=== PATIENT | male | born 1955 | race Caucasian/White ===

== ENCOUNTER → 2017-01-15 | Outpatient (CLI) | payer OTHER ==
[2017-01-15 09:48] LABS: CHLORIDE,CL 99 mmol/L (98-110); SODIUM,NA 138 mmol/L (136-146)
== END ==
LOC: MW.CHFP 09:02
PROVIDERS: ATTEND Nurse Practitioner Family
DX: R60.9 Edema, unspecified (principal)
CPT/HCPCS: 36415; 80048

== ENCOUNTER → 2017-02-04 | Outpatient (CLI) | payer OTHER ==
--- NOTE | 2017-02-05 16:37 | US ---
EXAM DATE: 02/04/17 PATIENT'S AGE: 61 Patient: CHRISTELLE DILL Facility: [place], [place] : 1955 Study: US Extremity Bilateral [id number]/04/2017 11:14:56 AM Ordering Physician: Shraddha Serrano Final Report: Exam: Duplex arterial examination of bilateral lower extremities including 2D and spectral analysis, and color Doppler imaging was performed. Indication: History of bilateral lower extremity peripheral arterial disease. Comparison: Ultrasound of bilateral lower extremity arteries dated 03/03/2014. Findings: RIGHT: -Atherosclerotic changes throughout the right lower extremity arteries RETORT FURNACE HELPER: 145 cm/sec; monophasic waveform PFA: 71 cm/sec; monophasic waveform SFA PROX: 111 cm/sec; monophasic waveform SFA MID: 154 cm/sec; monophasic waveform SFA DIST: 115 cm/sec; monophasic waveform POP: 74 cm/sec; monophasic waveform TP TRUNK: 71 cm/sec; monophasic waveform COLOR DEPOSITING MACHINE TENDER: 56 cm/sec; monophasic waveform SHANNON: 57 cm/sec; monophasic waveform LEFT: -Atherosclerotic changes throughout the left lower extremity arteries RETORT FURNACE HELPER: 98 cm/sec; multiphasic above the baseline waveform PFA: 73 cm/sec; monophasic waveform SFA PROX: 96 cm/sec; monophasic waveform SFA MID: 70 cm/sec; monophasic waveform SFA DIST: 43 cm/sec; monophasic waveform POP: 78 cm/sec; monophasic waveform TP TRUNK: 25 cm/sec; monophasic waveform COLOR DEPOSITING MACHINE TENDER: 29 cm/sec; monophasic waveform SHANNON: 26 cm/sec; monophasic waveform Impression: 1. Essentially monophasic waveforms throughout the bilateral lower extremity arteries suggestive of inflow disease. 2. No evidence of hemodynamically significant stenosis by velocity criteria, though waveforms in the left distal SFA and distally are severely diminished, new since 03/03/2014, suggestive of a hemodynamically significant stenosis in the mid to distal SFA. Dictated by Alejandro Nielsen MD @ Feb 05 2017 3:44PM (Electronic Signature) Report Signed by Proxy and Original Signed Document filed in the Medical Record. CHANCE
== END ==
LOC: MW.US 09:24
PROVIDERS: ATTEND Nurse Practitioner Family
DX: I73.9 Peripheral vascular disease, unspecified (principal)
CPT/HCPCS: 93925; 93925-26

== ENCOUNTER 2019-07-26 14:00 | Emergency (ER) | payer OTHER ==
[2019-07-26 14:29] VITALS: BP 156/81; PULSE 78
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
== END 2019-07-26 15:54 | disposition home or self-care (01) ==
LOC: MW.ED 14:00
DX: M25.561 Pain in right knee (principal); M54.2 Cervicalgia; M79.645 Pain in left finger(s); I10 Essential (primary) hypertension; E11.9 Type 2 diabetes mellitus without complications; F17.200 Nicotine dependence, unspecified, uncomplicated; V49.40XA Driver injured in collision with unspecified motor vehicles in traffic accident, initial encounter; Y92.410 Unspecified street and highway as the place of occurrence of the external cause
CPT/HCPCS: 71045; 71045-26; 72125; 72125-26; 73130-26-LT; 73130-LT; 73562-26-RT; 73562-RT; 99284-25

== ENCOUNTER 2021-02-16 15:59 | Emergency (ER) | payer OTHER ==
[2021-02-16] MEDS ORDERED: Sodium Chloride 0.9% 10 ML Syringe FLUSH PRN (16:19)
[2021-02-16] MEDS ORDERED: Sodium Chloride 0.9% 2.5 ML Syringe FLUSH PRN (16:19)
--- NOTE | 2021-02-16 16:21 | EDM.PDOC ---
ED HPI GENERAL MEDICAL PROBLEM - General Chief Complaint: General Stated Complaint: low blood pressure Time Seen by Provider: 02/16/21 16:07 Source of Information: Reports: Patient History Limitations: Reports: No Limitations - History of Present Illness INITIAL COMMENTS - FREE TEXT/NARRATIVE: HISTORY AND PHYSICAL: History of present illness: The patient is a 65-year-old male with a history of diabetes mellitus type 2, diabetic neuropathy, hypertension, hyper cholesterolemia, peripheral vascular disease, who presents to the emergency department after seeing his primary care Dr. Babcock and having a blood pressure reading of 82/40 and a recheck of 76/42. The patient took his morning dose of metoprolol, lisinopril and hydrochlorothiazide. In the clinic he had mild lightheadedness, but none in the emergency department. In the clinic he did have a blurred vision, headache, dizziness or syncope or near syncope and does not have any at this time. The patient has been seen Dr. Hagan for complaints of GI bloating, feeling gassy, mild nausea and abdominal discomfort for several months. The patient reports that this started mid October when he started taking Ozempic for glucose control. He took the medication until the end of November when he could no longer tolerate the GI effects. He has decreased appetite with a weight loss of 50 pounds since October. He does drink adequate amounts of water. He states generally he has been feeling weaker and has decreased steadiness since October. He states his normal blood pressure is 130/80. He is attempting to set up an appointment for a endoscopy with a general surgeon. His blood pressure at time of admission to the ED was 117/56. Patient denies any fever or chills. Denies any chest pain, back pain, shortness of breath or cough. Denies any abdominal pain, nausea, vomiting, diarrhea, constipation or dysuria. Has not noted any blood in urine or stool. Review of systems: As per history of present illness and below otherwise all systems reviewed and negative. Past medical history: As per history of present illness and as reviewed below otherwise noncontributory. Surgical history: As per history of present illness and as reviewed below otherwise noncontributory. Social history: See social history for further information Family history: As per history of present illness and as reviewed below otherwise noncontributory. Physical exam: General: Well developed and well nourished. Alert and orientated x 3. Nontoxic in appearance and in no acute distress. Vital signs are stable and have been reviewed by me. Nursing notes were reviewed. HEENT: Atraumatic, normocephalic, pupils equal and reactive bilaterally, negative for conjunctival pallor or scleral icterus, mucous membranes moist, t hroat clear, neck supple, nontender, trachea midline. No drooling or trismus noted. No meningeal signs. No hot potato voice noted. Lungs: Clear to auscultation bilaterally. No wheezes, rales, or rhonchi. Chest nontender. Normal work of breathing, no accessory muscles used. Heart: S1S2, regular rate and rhythm without overt murmur, gallops, or rubs. No JVD. Lymphedema left lower extremity. Abdomen: Soft, nondistended, mild tenderness bilateral upper quads. Normoactive bowel sounds. Negative for masses or costovertebral tenderness. Skin: Intact, warm, dry. No lesions or rashes noted. Hematologic: No petechiae or purpra. Mucosa appropriate color and normal nail bed color and refill. Extremities: Atraumatic, moves all extremities per self without difficulty or deficits, negative for cords or calf pain. Bilateral peripheral neuropathy. Neuro: Awake, alert, oriented. Cranial nerves II through XII unremarkable. Cerebellum unremarkable. Motor and sensory unremarkable throughout. Exam nonf ocal. Psychiatric: Mood and affect are appropriate. Normal thought process. Answering questions appropriately. Notes: *This patient was seen and evaluated during the 2019 SARS-CoV-2 novel coronaviru s pandemic period. Community viral transmission is ongoing at time of this encounter and the emergency department is operating under pandemic response procedures. After discussion and exam the patient is agreeable to labs, CXR, CT abdomen/pelvis, and UA. (17:11) Leukocytosis @ 16:50 13.98 Neutrophils 82.9; leukocytosis @ 11:57, WBC 15.06 Neutrophils 80.9. Patient had a negative FOBT in clinic today. GFR 55.[address] of abdomen/pelvis to continue. (17:38) CXR IMPRESSION: No acute pulmonary or cardiac abnormalities. Hyperinflation. CT abdomen/pelvis IMPRESSION per the Radiologist: 1. Constellation of hepatic hypodense mass inseparable from the gallbladder, necrotic mass/adenopathy along the diego hepatis, celiac axis and head of the pancreas. Although localized gallbladder perforation is possible with associated adenopathy, appearance is highly suggestive of malignancy. Differential diagnosis would include a gallbladder primary lesion with invasion of the liver or a pancreatic primary with regional adenopathy and hepatic metastases. Primary liver lesion possible but less likely. Liver biopsy suggested for next step in management. 2. Other incidental findings as detailed above. Consulted with Dr. Alcazar, Oncologist from [place] regarding treatment due to CT results. Dr. Alcazar advised the patient needed a CT guided biopsy and would need a referral to their clinic. A note needs to be faxed to the number, . The patient blood pressure is running 135/56 and heart rate of 90. He is have frequent loose stools that I will treat with Imodium. As the patient is stable and able to walk independently without becoming hypotensive I will discharge the patient home to follow up with Oncology in [place]. I will send the record for a referral and the oncology department will call the patient regarding an appointment. I spoke with the patient with is at the bedside regarding the results of the CT and possible cancer diagnosis. They verbalized their understanding and the need to follow up with the oncologist. The patient asked if I would follow up with Dr. Babcock tomorrow with the CT findings. The patient will follow Dr. Babcock instructions of holding the lisinopril and HCTZ for now. I have talked with the patient about today's findings, in addition to providing specific details for plan of care. Reassessment at the time of disposition demonstrates that the patient is in no acute distress. The patient is stable for discharge, counseling was provided and we discussed in great detail signs and symptoms that would prompt them to return to the Emergency Department. Medication, follow up and supportive care measures were reviewed and discussed. Voices understanding and is agreeable to plan of care. Denies any further questions or concerns at this time. Diagnostics: CBC, CMP, UA, CXR, CT abdomen/pelvis Therapeutics:IV fluids, Imodium Impression: Liver Mass Plan: 1. You were evaluated today on an emergent basis. Your low blood pressure and general GI upset. You were found to have a liver/gallbladder mass possible cancer. You will need to follow-up with the oncologist in [place]. I will send a referral over and they will call you. I will update your primary care provider. If you have any problems please return to the emergency department. 2. You can alternate Tylenol and ibuprofen as needed for pain and fever management. 3. We encourage you to follow up with your primary care provider and/or recommended specialist in the next few days for re-evaluation and further care/management. 4. If your symptoms should worsen, new symptoms develop or any of the signs and symptoms we discussed should arise please return to the emergency room or call 911 (if needed). Definitive disposition and diagnosis as appropriate pending reevaluation and review of above. - Related Data Allergies Allergy/AdvReac Type Severity Reaction Status Date / Time No Known Allergies Allergy Verified 02/16/21 16:27 Home Meds: Home Meds Aspirin 325 mg PO DAILY 02/16/21 [History] Fluticasone Propionate [Children's Flonase Allergy Rlf] 1 spray NASBOTH DAILY 02/16/21 [History] Furosemide 20 mg PO DAILY 02/16/21 [History] Insulin Degludec [Tresiba] 8 unit SQ DAILY 02/16/21 [History] Lansoprazole [Prevacid] 1 tab PO BID 02/16/21 [History] Metoprolol Succinate 1 tab PO DAILY 02/16/21 [History] Potassium Chloride 20 meq PO DAILY 02/16/21 [History] atorvaSTATin [Lipitor] 10 mg PO DAILY 02/16/21 [History] hydroCHLOROthiazide [Hydrochlorothiazide] 25 mg PO DAILY 02/16/21 [History] lisinopriL [Lisinopril] 40 mg PO DAILY 02/16/21 [History] Past Medical History Cardiovascular History: Reports: Bypass, Hypertension, Stents Endocrine/Metabolic History: Reports: Diabetes, Type II Social & Family History - Family History Family Medical History: No Pertinent Family History ED ROS GENERAL - Review of Systems Review Of Systems: Comprehensive ROS is negative, except as noted in HPI. ED EXAM, GENERAL - Physical Exam Exam: See Below (See dictation) Course - Vital Signs Last Recorded V/S: Last Vital Signs Temp 97.8 F 02/16/21 16:24 Pulse 84 02/16/21 18:26 Resp 16 02/16/21 18:26 BP 106/51 L 02/16/21 19:25 Pulse Ox 98 02/16/21 19:25 Orthostatic Blood Pressure [ 107/58 Standing] Orthostatic Blood Pressure [ 139/67 Sitting] Orthostatic Blood Pressure [ 135/54 Supine] - Orders/Labs/Meds Orders: Active Orders 24 hr Category Date Time Status Saline Lock Insert [OM.PC] Stat Oth 02/16/21 16:19 Ordered Labs: Laboratory Tests 02/16/21 02/16/21 Range/Units 16:50 16:50 WBC 13.98 H (4.0-11.0) K/uL RBC 4.51 (4.50-5.90) M/uL Hgb 13.2 (13.0-17.0) g/dL Hct 40.4 (38.0-50.0) % MCV 89.6 (80.0-98.0) fL MCH 29.3 (27.0-32.0) pg MCHC 32.7 (31.0-37.0) g/dL RDW Std Deviation 57.2 (28.0-62.0) fl RDW Coeff of Kwadwo 17 H (11.0-15.0) % Plt Count 275 (150-400) K/uL MPV 10.90 (7.40-12.00) fL Neut % (Auto) 82.9 H (48.0-80.0) % Lymph % (Auto) 6.5 L (16.0-40.0) % [place] % (Auto) 9.0 (0.0-15.0) % Eos % (Auto) 1.5 (0.0-7.0) % Baso % (Auto) 0.1 (0.0-1.5) % Neut # (Auto) 11.6 H (1.4-5.7) K/uL Lymph # (Auto) 0.9 (0.6-2.4) K/uL [place] # (Auto) 1.3 H (0.0-0.8) K/uL Eos # (Auto) 0.2 (0.0-0.7) K/uL Baso # (Auto) 0.0 (0.0-0.1) K/uL Nucleated RBC % 0.0 /100WBC Nucleated RBCs # 0 K/uL Sodium 137 (136-148) mmol/L Potassium 3.6 (3.5-5.1) mmol/L Chloride 99 (98-107) mmol/L Carbon Dioxide 28.4 (21.0-32.0) mmol/L BUN 21 H (7.0-18.0) mg/dL Creatinine 1.3 (0.8-1.3) mg/dL Est Cr Clr Drug Dosing 56.65 mL/min Estimated GFR (MDRD) 55.4 ml/min Glucose 136 H (74-106) mg/dL Calcium 8.8 (8.5-10.1) mg/dL Total Bilirubin 0.9 (0.2-1.0) mg/dL AST 42 H (15-37) IU/L ALT 24 (14-63) IU/L Alkaline Phosphatase 144 H (46-116) U/L Total Protein 7.3 (6.4-8.2) g/dL Albumin 2.4 L (3.4-5.0) g/dL Globulin 4.9 H (2.6-4.0) g/dL Albumin/Globulin Ratio 0.5 L (0.9-1.6) Meds: Medications Discontinued Medications Generic Name Dose Route Start Last Admin Trade Name Freq PRN Reason Stop Dose Admin Sodium Chloride 1,000 mls @ 150 mls/hr 02/16/21 16:57 02/16/21 17:27 Normal Saline IV 02/16/21 23:36 150 mls/hr STAT STA Administration Iopamidol 100 ml 02/16/21 17:21 02/16/21 17:22 Iopamidol 755 Mg/Ml 500 Ml Multipack Bottle IVPUSH 02/16/21 17:22 100 ml ONETIME ONE Administration Sodium Chloride 10 ml 02/16/21 16:19 02/16/21 16:40 Sodium Chloride 0.9% 10 Ml Syringe FLUSH 10 ml ASDIRECTED PRN Administration Keep Vein Open Sodium Chloride 2.5 ml 02/16/21 16:19 02/16/21 16:40 Sodium Chloride 0.9% 2.5 Ml Syringe FLUSH 2.5 ml ASDIRECTED PRN Administration Keep Vein Open Departure - Departure Time of Disposition: 19:23 Disposition: Home, Self-Care 01 Condition: Good Clinical Impression: Liver mass - Discharge Information *PRESCRIPTION DRUG MONITORING PROGRAM REVIEWED*: Not Applicable *COPY OF PRESCRIPTION DRUG MONITORING REPORT IN PATIENT LAILA: Not Applicable Instructions: Liver Cancer Referrals: Pancho Vela MD [Primary Care Provider] - Forms: ED Department Discharge Additional Instructions: The following information is given to patients seen in the emergency department who are being discharged to home. This information is to outline your options for follow-up care. We provide all patients seen in our emergency department with a follow-up referral. The need for follow-up, as well as the timing and circumstances, are variable depending upon the specifics of your emergency department visit. If you don't have a primary care physician on staff, we will provide you with a referral. We always advise you to contact your personal physician following an emergency department visit to inform them of the circumstance of the visit and for follow-up with them and/or the need for any referrals to a consulting specialist. The emergency department will also refer you to a specialist when appropriate. This referral assures that you have the opportunity for follow-up care with a specialist. All of these measure are taken in an effort to provide you with optimal care, which includes your follow-up. Under all circumstances we always encourage you to contact your private physician who remains a resource for coordinating your care. When calling for follow-up care, please make the office aware that this follow-up is from your recent emergency room visit. If for any reason you are refused follow-up, please contact the [facility] Emergency Department at and asked to speak to the emergency department charge nurse. [facility] [address] [place] [address] [id number] [address] [address] Plan: 1. You were evaluated today on an emergent basis. Your low blood pressure and general GI upset. You were found to have a liver/gallbladder mass possible cancer. You will need to follow-up with the oncologist in [place]. I will send a referral over and they will call you. I will update your primary care provider. If you have any problems please return to the emergency department. 2. You can alternate Tylenol and ibuprofen as needed for pain and fever management. 3. We encourage you to follow up with your primary care provider and/or recommended specialist in the next few days for re-evaluation and further care/management. 4. If your symptoms should worsen, new symptoms develop or any of the signs and symptoms we discussed should arise please return to the emergency room or call 911 (if needed). - My Orders Last 24 Hours: My Active Orders 02/16/21 16:19 Saline Lock Insert [OM.PC] Stat - Assessment/Plan Last 24 Hours: My Active Orders 02/16/21 16:19 Saline Lock Insert [OM.PC] Stat
[2021-02-16 16:27] VITALS: PULSE 84
[2021-02-16] MEDS ORDERED: Sodium Chloride 0.9% 1,000 ML IV STA (16:57)
--- NOTE | 2021-02-16 17:17 | CR ---
INDICATION: Low blood pressure TECHNIQUE: Chest 2 views. COMPARISON: 07/26/2019 FINDINGS: Cardiovascular and mediastinum: Heart size and vasculature are normal in caliber and appearance. Mediastinum is within normal limits. Lungs and pleural spaces: Hyperinflation. Lungs are clear. No sign of infiltrate or mass. No sign of pleural effusion. No pneumothorax. Bones and soft tissues: No significant findings. IMPRESSION: No acute pulmonary or cardiac abnormalities. Hyperinflation. Dictated by Mika Parikh MD @ 02/16/2021 5:15:[address] Mika Parikh @ Feb 16 2021 5:15PM
[2021-02-16] MEDS ORDERED: Iopamidol 755 MG/ML 500 ML Multipack Bottle IVPUSH ONE (17:21)
[2021-02-16 17:27] LABS: CARBON DIOXIDE,CO2 28.4 mmol/L (21.0-32.0); POTASSIUM,K 3.6 mmol/L (3.5-5.1)
--- NOTE | 2021-02-16 18:22 | CT ---
INDICATION: Leukocytosis TECHNIQUE: Axial images were obtained from the diaphragm to the pubic symphysis. Reformats were obtained in the coronal and sagittal plane. IV Contrast: 100 cc Isovue 370 Oral Contrast: None COMPARISON: None. FINDINGS: Lower chest: 3 millimeter pulmonary nodule right lower lobe (201, 12). Mosaic attenuation pattern of the lung bases. Liver: At the level of the gallbladder fossa involving segment 4 and 5 there is a hypodense mass measuring up to 8.7 x 7.0 centimeters surrounding and possibly involving the adjacent gallbladder (201, 71). Gallbladder and bile ducts: No intrahepatic biliary dilatation. The gallbladder is distended although its margins are indistinct, especially near the fundus. Spleen: Unremarkable. Normal in size without mass. Pancreas: Body and tail of the pancreas are unremarkable, however at the level of the head of the pancreas there is a hypodense mass measuring 3.4 centimeters. Additional extensive necrotic adenopathy along the celiac axis, largest measuring 2.5 centimeters, retrocrural measuring 15 millimeters and encasing the aorta near the renal level with a maximal diameter of 8.4 centimeters. Adrenal glands: Slight fusiform enlargement of the left adrenal gland. Kidneys: No hydronephrosis with nonobstructing nephrolithiasis. Left renal subcentimeter lesions, likely renal cysts. Vasculature: Atherosclerosis without abdominal aortic aneurysm encasement of the aorta at the level of the renal arteries secondary to the extensive adenopathy. GI tract: Stomach is decompressed. No dilated loops of large or small intestine. Appendix unremarkable. Pelvis: Fat containing left indirect inguinal hernia. Bones: Spondylolysis L5. IMPRESSION: 1. Constellation of hepatic hypodense mass inseparable from the gallbladder, necrotic mass/adenopathy along the diego hepatis, celiac axis and head of the pancreas. Although localized gallbladder perforation is possible with associated adenopathy, appearance is highly suggestive of malignancy. Differential diagnosis would include a gallbladder primary lesion with invasion of the liver or a pancreatic primary with regional adenopathy and hepatic metastases. Primary liver lesion possible but less likely. Liver biopsy suggested for next step in management. 2. Other incidental findings as detailed above. Results discussed with Dr. Hackett at 1811 on 02/16/20[address] note that all CT scans at this facility use dose modulation, iterative reconstruction, and/or weight-based dosing when appropriate to reduce radiation dose to as low as reasonably achievable. Dictated by Rodolfo Lazo MD @ 02/16/2021 6:20:[address] Rodolfo Lazo @ Feb 16 2021 6:20PM
[2021-02-16 19:28] VITALS: BP 106/51
--- NOTE | 2021-02-17 17:15 | PCM.EKG ---
#1 Interpretation EKG Date: 02/16/21 Time: 16:27 Rhythm: NSR Rate (Beats/Min): 76 [place]: Normal P-Wave: Present QRS: Normal ST-T: Normal QT: Normal Comparison: NA - No Prior EKG EKG Interpretation Comments: Sinus Rhythm
== END 2021-02-16 19:31 | disposition home or self-care (01) ==
LOC: MW.ED 15:59
DX: R16.0 Hepatomegaly, not elsewhere classified (principal); E11.40 Type 2 diabetes mellitus with diabetic neuropathy, unspecified; I10 Essential (primary) hypertension; Z79.82 Long term (current) use of aspirin; Z79.899 Other long term (current) drug therapy; Z95.5 Presence of coronary angioplasty implant and graft; Z95.1 Presence of aortocoronary bypass graft
CPT/HCPCS: 36415; 71046; 71046-26; 74177; 74177-26; 80053; 85025; 93005; 99284; 99285-25; J7030; Q9967

== ENCOUNTER 2021-03-22 06:43 | Day surgery (SDC) | payer OTHER, MEDICARE ==
--- NOTE | 2021-03-22 07:25 | PCM.PREANE ---
Preanesthetic Assessment - Anesthesia/Transfusion/Family Hx Anesthesia History: Prior Anesthesia Without Reaction Family History of Anesthesia Reaction: No Transfusion History: No Prior Transfusion(s) - Physical Assessment NPO Status Date: 03/22/21 NPO Status Time: 00:01 Vital Signs: Last Vital Signs Temp 98.1 F 03/22/21 06:50 Pulse 88 03/22/21 06:50 Resp 16 03/22/21 06:50 BP 164/72 H 03/22/21 06:50 Pulse Ox 96 03/22/21 06:50 Height: 5 ft 9 in Weight: 215 lb ASA Class: 3 Airway Class: Mallampati = 2 Dentition: Reports: Dentures ROM/Head Extension: Limited/Partial Lungs: Normal Respiratory Effort Cardiovascular: Regular Rhythm - Allergies Allergies/Adverse Reactions: Allergies Allergy/AdvReac Type Severity Reaction Status Date / Time No Known Allergies Allergy Verified 02/16/21 16:27 - Anesthesia Plan Pre-Op Medication Ordered: None - Acknowledgements Anesthesia Type Planned: General Anesthesia Pt an Appropriate Candidate for the Planned Anesthesia: Yes Alternatives and Risks of Anesthesia Discussed w Pt/Guardian: Yes Pt/Guardian Understands and Agrees with Anesthesia Plan: Yes Additional Comments: npo after mn liver CA IDDM glu 115 this am lisa obesity bmi 32 tob 1-2 ppd etoh 2-3 times a week htn no cv problems s/p L fem pop surgery, R side graft 2012 par no questions PreAnesthesia Questionnaire HEENT History: Reports: Other (See Below) Other HEENT History: wears glasses, top and bottom dentures Cardiovascular History: Reports: High Cholesterol, Hypertension, PVD, Stents Respiratory History: Reports: None Other Respiratory History: 45 year smoking hx, presently smokes alittle over 1 PPD Gastrointestinal History: Reports: GERD Genitourinary History: Reports: None Musculoskeletal History: Reports: None Neurological History: Reports: None Psychiatric History: Reports: None Endocrine/Metabolic History: Reports: Diabetes, Type II, Obesity/BMI 30+ Hematologic History: Reports: None Immunologic History: Reports: None Oncologic (Cancer) History: Reports: Liver Dermatologic History: Reports: None - Infectious Disease History Infectious Disease History: Reports: Chicken Pox, Measles, Mumps - Past Surgical History Head Surgeries/Procedures: Reports: None HEENT Surgical History: Reports: None Cardiovascular Surgical History: Reports: Vascular Surgery Other Cardiovascular Surgeries/Procedures: left femerol popiteal bypass, stent placement to right leg Respiratory Surgical History: Reports: None GI Surgical History: Reports: None Male Surgical History: Reports: None Endocrine Surgical History: Reports: None Neurological Surgical History: Reports: None Musculoskeletal Surgical History: Reports: None Oncologic Surgical History: Reports: None Dermatological Surgical History: Reports: None - SUBSTANCE USE Tobacco Use Status *Q: Current Every Day Tobacco User Tobacco Use Within Last Twelve Months: Cigarettes Days Per Week of Alcohol Use: 4 - HOME MEDS Home Medications: Home Meds Aspirin 325 mg PO DAILY 02/16/21 [History] Furosemide 20 mg PO DAILY 02/16/21 [History] Insulin Degludec [Tresiba] 8 unit SQ BEDTIME 02/16/21 [History] Lansoprazole [Prevacid] 1 tab PO DAILY PRN 02/16/21 [History] Metoprolol Succinate 50 mg PO DAILY 02/16/21 [History] Potassium Chloride 20 meq PO DAILY 02/16/21 [History] atorvaSTATin [Lipitor] 10 mg PO DAILY 02/16/21 [History] Fluticasone Propionate [Flonase Allergy Relief] 1 spray NASBOTH DAILY 03/20/21 [History] Insulin Aspart [NovoLOG] 1 injection SUBCUT ASDIRECTED 03/20/21 [History]
[2021-03-22] MEDS ORDERED: Bupivacaine 0.5% 10 ML SDV ONE (07:30)
[2021-03-22] MEDS ORDERED: Lactated Ringers 1,000 ML IV SCH (07:30)
[2021-03-22] MEDS ORDERED: Heparin Sodium 100 Units/ML 3 ML Syringe ONE ×2 (07:30→09:21)
[2021-03-22] MEDS ORDERED: Octyl 2-Cyanoacrylate 1 Tube ONE (07:31)
[2021-03-22] MEDS ORDERED: Lidocaine 1% 20 ML MDV ONE (07:31)
[2021-03-22] MEDS ORDERED: Iopamidol 408 MG/ML 20 ML SDV ONE (07:31)
[2021-03-22] MEDS ORDERED: Propofol 200 MG/20 ML SDV ONE (07:49)
[2021-03-22] MEDS ORDERED: fentaNYL 100 MCG/2 ML SDV ONE ×2 (07:49→08:24)
[2021-03-22] MEDS ORDERED: Ondansetron 4 MG/2 ML SDV ONE (07:49)
[2021-03-22] MEDS ORDERED: Phenylephrine 1% 10 MG/ML SDV ONE (08:16)
--- NOTE | 2021-03-22 09:26 | PCM.OPNOTE ---
- General Post-Op/Procedure Note Date of Surgery/Procedure: 03/22/21 Operative Procedure(s): Right internal jugular port a cath placement Findings: RIJ port Pre Op Diagnosis: Liver mass Post-Op Diagnosis: same Anesthesia Technique: General LMA Primary Surgeon: Ami Montes Fluid Replacement, Intraop: 1,000 EBL in mLs: 10 Condition: Good
--- NOTE | 2021-03-22 09:59 | PCM.POSTAN ---
POST ANESTHESIA ASSESSMENT - MENTAL STATUS Mental Status: Alert (no anesthetic problems), Oriented - VITAL SIGNS Vital Signs: Last Vital Signs Temp 97.9 F 03/22/21 09:40 Pulse 82 03/22/21 09:40 Resp 14 03/22/21 09:40 BP 138/64 03/22/21 09:40 Pulse Ox 91 L 03/22/21 09:40 - RESPIRATORY Respiratory Status: Respiratory Rate WNL, Airway Patent, O2 Saturation Stable - CARDIOVASCULAR CV Status: Pulse Rate WNL, Blood Pressure Stable - GASTROINTESTINAL GI Status: No Symptoms - POST OP HYDRATION Hydration Status: Adequate & Stable
[2021-03-22 10:20] VITALS: BP 135/63; PULSE 80
--- NOTE | 2021-03-22 10:43 | PCM48HPAN ---
Post Anesthesia Note - EVALUATION WITHIN 48HRS OF ANESTHETIC Vital Signs in Normal Range: Yes Patient Participated in Evaluation: Yes Respiratory Function Stable: Yes Airway Patent: Yes Cardiovascular Function Stable: Yes Hydration Status Stable: Yes Pain Control Satisfactory: Yes Nausea and Vomiting Control Satisfactory: Yes Mental Status Recovered: Yes Vital Signs: Last Vital Signs Temp 97.9 F 03/22/21 09:40 Pulse 80 03/22/21 10:10 Resp 16 03/22/21 10:10 BP 135/63 03/22/21 10:10 Pulse Ox 93 L 03/22/21 10:10
--- NOTE | 2021-03-23 10:33 | CR ---
INDICATION: Port-A-Cath placement. TECHNIQUE: Port-A-Cath placement performed by Dr. Montes. Two C-arm spot images were obtained. Fluoroscopy time was 60.8 sec. COMPARISON: None. FINDINGS: Right-sided Port-A-Cath in place with tip in the general region of the cavoatrial junction. IMPRESSION: Right-sided Port-A-Cath with tip at the cavoatrial junction. Dictated by Ajit Damian MD @ 03/23/2021 10:32:[address] Ajit Damian @ Mar 23 2021 10:32AM
--- NOTE | 2021-03-23 10:37 | CR ---
INDICATION: Port-A-Cath placement. TECHNIQUE: Upright portable AP image of the chest. COMPARISON: 02/16/2021. FINDINGS: Interval placement of right-sided Port-A-Cath with tip at the cavoatrial junction. Lungs low in volume with crowded markings in the bases. Increased left hilar mass. Numerous linear opacities in the bases raise concern of lymphangitic spread of carcinoma. No pleural effusion. Heart size within normal limits. IMPRESSION: 1. Interval Port-A-Cath placement with tip at the cavoatrial junction. 2. Increased left hilar mass. 3. Shallow inspiration with crowded markings in the bases and increased linear opacities raising concern of lymphangitic spread a carcinoma. Dictated by Ajit Damian MD @ 03/23/2021 10:36:[address] Ajit Damian @ Mar 23 2021 10:36AM
--- NOTE | 2021-03-23 11:40 | OR ---
SURGEON: AMI MONTES MD DATE OF PROCEDURE: 03/22/2021 PREOPERATIVE DIAGNOSIS: Neuroendocrine tumor of the liver. POSTOPERATIVE DIAGNOSIS: Neuroendocrine tumor of the liver. PROCEDURE PERFORMED: Right internal jugular Port-A-Cath placement. PRIMARY SURGEON: Ami Montes MD ANESTHESIA: General LMA. FLUIDS: See Anesthesia record. ESTIMATED BLOOD LOSS: 10 mL. FINDINGS: Right internal jugular Port-A-Cath placement. COMPLICATIONS: None. INDICATIONS: The patient is a 65-year-old male who presents to clinic with a recent diagnosis of a neuroendocrine tumor of the liver. He is in need of Port-A-Cath placement for chemotherapy. The patient and I discussed the procedure, expected perioperative course, and the risks including bleeding, infection, or damage to surrounding structures. The patient verbalized understanding and wishes to proceed. PROCEDURE IN DETAIL: The patient was brought into the OR and placed on the OR table in supine position. A time-out was completed verifying the patient's name, age, date of , allergies, and procedure to be performed. General LMA anesthesia was induced. A roll was placed under the patient's shoulders and both arms were tucked to the patient's side. An ultrasound probe was brought in to verify the vascular anatomy of the neck. I identified the right internal jugular vein and the right carotid artery. The neck and chest were then prepped and draped in usual standard fashion. The patient was placed into Trendelenburg position. Using a sterile ultrasound probe, I reidentified the vascular anatomy of the neck. Using a guide needle and ultrasound, I was able to place the needle into the internal jugular vein under direct visualization. A good return of venous blood was noted. I passed the guidewire down the needle, but was unable to get it to thread. The needle was removed and pressure was held at the neck. Using ultrasound guidance, I regained vascular access into the right internal jugular vein. This time, I was able to get the guidewire to pass without difficulty. C- arm was brought in and verified placement of the guidewire into the vena cava. The guidewire was secured to the drapes and I turned my attention to the right anterior chest wall. Prior to beginning the procedure, the neck and chest wall were anesthetized with 1% lidocaine plain and 0.5% Marcaine plain. An area of 2 fingerbreadths below the clavicle, an incision was made using a 15 blade. Cautery was used to dissect down to the level of the chest wall and create a subcutaneous pocket. An 11 blade was used to make a meng in the skin overlying the guidewire insertion site on the neck. The catheter tubing was tunneled from the anterior chest wall site up to the neck. A vascular sheath and dilator were then brought into the field. These were placed over the guidewire, and using the C-arm, I used fluoroscopic guidance to dilate up my vascular tract. The dilator and guidewire were removed. The catheter tubing was then placed down the vascular sheath and placed into the vena cava. The vascular sheath was removed. Using C-arm, I pulled the catheter tubing back, so that the catheter tubing was located in the vena cava right above the atrial junction. Photograph of this and the catheter tubing side of the neck were taken and saved. I accessed the catheter tubing. Good return of venous blood was noted. The catheter tubing was flushed with injectable saline. It was then trimmed at 26 cm and placed on the Port-A-Cath device. The port was placed in the subcutaneous chest wall pocket and secured on either side using interrupted 2-0 Prolenes. I accessed the catheter with a Alfonso needle. A good return of venous blood was noted. The catheter was then locked with 3 mL of heparinized saline. The subcutaneous fat layer was closed with interrupted 3-0 Vicryl sutures. The skin was closed with a running 4-0 Monocryl stitch. The insertion site on the neck was closed with interrupted 4-0 Monocryl suture. Dermabond and sterile dressings were applied. The patient tolerated the procedure well and was taken to PACU in stable condition. All counts were complete and correct at the end of the case. A postoperative chest x-ray showed good placement of the chest tube with no acute complications. DENISE / ROGER /[id number]
== END 2021-03-22 10:50 | disposition home or self-care (01) ==
LOC: MW.SDS 06:43
PROVIDERS: ATTEND Surgery
DX: D3A.8 Other benign neuroendocrine tumors (principal); R16.0 Hepatomegaly, not elsewhere classified; F17.210 Nicotine dependence, cigarettes, uncomplicated; G47.33 Obstructive sleep apnea (adult) (pediatric); E11.51 Type 2 diabetes mellitus with diabetic peripheral angiopathy without gangrene; I10 Essential (primary) hypertension; E78.00 Pure hypercholesterolemia, unspecified; E11.40 Type 2 diabetes mellitus with diabetic neuropathy, unspecified; J44.9 Chronic obstructive pulmonary disease, unspecified; E66.9 Obesity, unspecified; Z68.32 Body mass index [BMI] 32.0-32.9, adult; Z79.4 Long term (current) use of insulin; Z79.82 Long term (current) use of aspirin; Z79.899 Other long term (current) drug therapy
CPT/HCPCS: 36561; 71045; 76000; A9270; C1788; J0690; J1642; J2370; J2405; J2704; J3010; J3490; J7120; 00532; Q9966

== ENCOUNTER 2021-05-19 10:52 | Emergency (ER) | payer OTHER, MEDICARE ==
[2021-05-19] MEDS ORDERED: Sodium Chloride 0.9% 1,000 ML IV ONE (10:56)
[2021-05-19] MEDS ORDERED: Sodium Chloride 0.9% 2.5 ML Syringe FLUSH PRN (10:56)
[2021-05-19] MEDS ORDERED: Sodium Chloride 0.9% 10 ML Syringe FLUSH PRN (10:56)
[2021-05-19] MEDS ORDERED: Succinylcholine 200 MG/10 ML MDV IV STA (10:58)
[2021-05-19] MEDS ORDERED: Etomidate 2 MG/ML 20 ML SDV IVPUSH ONE (10:58)
[2021-05-19] MEDS ORDERED: fentaNYL 50 MCG/ML SDV IVPUSH PRN (11:11)
[2021-05-19] MEDS ORDERED: Furosemide 40 MG/4 ML VIAL IVPUSH ONE (11:12)
[2021-05-19] MEDS ORDERED: methylPREDNISolone Sodium Succinate 125 MG/2 ML SDV IVPUSH ONE (11:15)
[2021-05-19] MEDS ORDERED: propofoL 100 ML IV SCH (11:15)
[2021-05-19 11:39] LABS: BLOOD UREA NITROGEN,BUN 17 mg/dL (7.0-18.0); CARBON DIOXIDE,CO2 25.7 mmol/L (21.0-32.0); CHLORIDE,CL 100 mmol/L (98-107); GLUCOSE RANDOM 204 mg/dL (74-106); POTASSIUM,K 4.7 mmol/L (3.5-5.1); SODIUM,NA 135 mmol/L (136-148)
--- NOTE | 2021-05-19 11:43 | EDM.PDOC ---
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 Patient was getting outpatient chemotherapy, third round of etoposide. He tolerated the infusion well but after walking back out to his car became acutely dyspneic. called nursing who came out to evaluate patient and noted him to be diaphoretic, pale, hypotensive, tachycardic to 120s, hypoxic to 60s on room air. Patient was brought to emergency department for evaluation. Patient is tachypneic and only able to speak in short sentences, denies chest pain but endorses shortness of breath. Notes his lower extremity pitting edema is at baseline for him. States he is compliant with his medications. Has not had a reaction like this before. Has never required intubation. general Pain Score (Numeric/FACES): 3 - Related Data Allergies Allergy/AdvReac Type Severity Reaction Status Date / Time No Known Allergies Allergy Verified 05/19/21 11:04 Home Meds: Home Meds Aspirin 325 mg PO DAILY 02/16/21 [History] Furosemide 20 mg PO DAILY 02/16/21 [History] Insulin Degludec [Tresiba] 8 unit SQ BEDTIME 02/16/21 [History] Lansoprazole [Prevacid] 1 tab PO DAILY PRN 02/16/21 [History] Metoprolol Succinate 50 mg PO DAILY 02/16/21 [History] Potassium Chloride 20 meq PO DAILY 02/16/21 [History] atorvaSTATin [Lipitor] 10 mg PO DAILY 02/16/21 [History] Fluticasone Propionate [Flonase Allergy Relief] 1 spray NASBOTH DAILY 03/20/21 [History] Insulin Aspart [NovoLOG] 1 injection SUBCUT ASDIRECTED 03/20/21 [History] Hydrocodone/Acetaminophen [Vicodin Hp 10-300 mg Tablet] 1 each PO Q6H PRN #6 tablet 03/22/21 [Rx] Past Medical History HEENT History: Reports: Other (See Below) Other HEENT History: wears glasses, top and bottom dentures Cardiovascular History: Reports: High Cholesterol, Hypertension, PVD, Stents Respiratory History: Reports: None Other Respiratory History: 45 year smoking hx, presently smokes alittle over 1 PPD Gastrointestinal History: Reports: GERD Genitourinary History: Reports: None Musculoskeletal History: Reports: None Neurological History: Reports: None Psychiatric History: Reports: None Endocrine/Metabolic History: Reports: Diabetes, Type II, Obesity/BMI 30+ Hematologic History: Reports: None Immunologic History: Reports: None Oncologic (Cancer) History: Reports: Liver Dermatologic History: Reports: None - Infectious Disease History Infectious Disease History: Reports: Chicken Pox, Measles, Mumps - Past Surgical History Head Surgeries/Procedures: Reports: None HEENT Surgical History: Reports: None Cardiovascular Surgical History: Reports: Vascular Surgery Other Cardiovascular Surgeries/Procedures: left femerol popiteal bypass, stent placement to right leg Respiratory Surgical History: Reports: None GI Surgical History: Reports: None Male Surgical History: Reports: None Endocrine Surgical History: Reports: None Neurological Surgical History: Reports: None Musculoskeletal Surgical History: Reports: None Oncologic Surgical History: Reports: None Dermatological Surgical History: Reports: None Social & Family History - Family History Family Medical History: No Pertinent Family History - Recreational Drug Use Recreational Drug Use: No ED ROS GENERAL - Review of Systems Review Of Systems: Comprehensive ROS is negative, except as noted in HPI. ED EXAM, GENERAL - Physical Exam Exam: See Below Exam Limited By: Respiratory Distress General Appearance: Alert, Other (Respiratory distress, speaking short sentences, tachypneic, using accessory muscles, pale, diaphoretic) Eye Exam: Bilateral Eye: PERRL Ears: Hearing Grossly Normal Throat/Mouth: Normal Inspection, Normal Lips, Normal Oropharynx, Normal Voice, No Airway Compromise Head: Atraumatic, Normocephalic Neck: Normal Inspection, Supple Respiratory/Chest: Other (Bilateral inspiratory and expiratory rhonchi and wheezing, positive accessory muscle use, tachypnea, severe respiratory distress) Cardiovascular: Tachycardia, Other (Severe bilateral lower extremity pitting edema) GI/Abdominal: Soft, Non-Tender Back Exam: Normal Inspection Extremities: Normal Inspection Neurological: Alert, Oriented Psychiatric: Anxious Skin Exam: Warm, Intact ED RESPIRATORY PROCEDURES - Endotracheal Intubation Time of Intubation: 11:30 ET Intubation Indication: Respiratory Failure Preparation: Suction, Balloon Tested, BVM Set Up, Difficult Airway Equip Pre-Oxygenation: Assisted with BVM, 100% FiO2 Anesthesia Meds: Etomidate, Fentanyl, Propofol, Rocuronium, Succinylcholine Placement: Orotracheal Cords Visualized: Yes ETT Size In mm: 7.5 Number of Attempts: 2 Confirmed By: CO2 Indicator, Bilateral Breath Sounds, Chest Xray Tube Secured By: By RT Endotracheal Intubation Comment: Intubation was complicated with first-pass failure. Patient became hypoxic 40s and was starting to get bradycardic so intubation was arrested and patient was bagged with improvement of O2 sats to the 70s and improvement in heart rate back to the 110s. He never lost pulses. Second attempt intubation was successful using the bougie device. Post intubation O2 sats were in the high 90s. #1 Interpretation EKG Date: 05/19/21 Time: 12:54 Rhythm: NSR Rate (Beats/Min): 122 [place]: Normal P-Wave: Present QRS: Normal ST-T: Normal QT: Prolonged (502) IL/PQ Interval: 141 EKG Interpretation Comments: sinus tachycardia, no overt acute ischemic changes Course - Vital Signs Last Recorded V/S: Last Vital Signs Temp 96.9 F 05/19/21 10:59 Pulse 120 H 05/19/21 11:25 Resp 16 05/19/21 10:59 BP 171/88 H 05/19/21 11:25 Pulse Ox 84 L 05/19/21 11:25 - Orders/Labs/Meds Orders: Active Orders 24 hr Category Date Time Status Cardiac Monitoring [RC] . DIRECTED Care 05/19/21 10:57 Active EKG Documentation Completion [RC] STAT Care 05/19/21 10:56 Active Insert Urinary Catheter [OM.PC] Q24H Care 05/19/21 11:45 Ordered Pulse Oximetry [RC] ASDIRECTED Care 05/19/21 10:57 Active RASS Sedation Scale [RC] ASDIRECTED Care 05/19/21 11:12 Active RT Ventilator, Adult [RC] ASDIRECTED Care 05/19/21 10:58 Active Urinary Catheter Assessment [RC] ASDIRECTED Care 05/19/21 11:40 Active NG Tube Placement [CR] Stat Exams 05/19/21 11:39 Ordered CORONAVIRUS COVID-19 BERONICA [MOLEC] Stat Lab 05/19/21 12:44 Received CULTURE BLOOD [BC] Stat Lab 05/19/21 10:54 Received CULTURE BLOOD [BC] Stat Lab 05/19/21 11:04 Received REFLEX LACTIC ACID YES OR NO [CHEM] Routine Lab 05/19/21 11:46 Received Sodium Chloride 0.9% [Saline Flush] Med 05/19/21 10:56 Active 10 ml FLUSH ASDIRECTED PRN Sodium Chloride 0.9% [Saline Flush] Med 05/19/21 10:56 Active 2.5 ml FLUSH ASDIRECTED PRN fentaNYL Med 05/19/21 11:11 Active 50 mcg IVPUSH Q30M PRN fentaNYL/Normal Saline [fentaNYL 2500 MCG in NS 250 ML Med 05/19/21 13:00 Active (10 MCG/ML)] 250 ml IV ONETIME propofoL [Diprivan 100 ML] 100 ml Med 05/19/21 11:15 Active IV TITRATE Blood Culture x2 Reflex Set [OM.PC] Stat Ot 05/19/21 12:28 Ordered Desired Level of Sedation (RASS) [AST] Click to Edit Ot 05/19/21 11:12 Ordered Nasogastric Orogastric Tube Insertion [OM.PC] Stat Ot 05/19/21 12:05 Ordered Saline Lock Insert [OM.PC] Stat Ot 05/19/21 10:57 Ordered Medication Orders Fentanyl (Fentanyl 50 Mcg/Ml Sdv) 50 mcg IVPUSH Q30M PRN PRN Reason: Agitation Last Admin: 05/19/21 11:47 Dose: 50 mcg Documented by: GILA Propofol (Diprivan 100 Ml) 100 mls @ 2.776 mls/hr IV TITRATE PARVEEN; Protocol Last Titration: 05/19/21 12:49 Dose: 40 mcg/kg/min, 22.208 mls/hr Documented by: [id number] Titration: 05/19/21 12:35 Dose: 30 mcg/kg/min, 16.656 mls/hr Documented by: Titration: 05/19/21 12:31 Dose: 20 mcg/kg/min, 11.104 mls/hr Documented by: Titration: 05/19/21 11:47 Dose: 15 mcg/kg/min, 8.328 mls/hr Documented by: Titration: 05/19/21 11:45 Dose: 10 mcg/kg/min, 5.552 mls/hr Documented by: Admin: 05/19/21 11:37 Dose: 5 mcg/kg/min, 2.776 mls/hr Documented by: GILA Fentanyl Citrate (Fentanyl 2500 Mcg In Ns 250 Ml (10 Mcg/Ml)) 250 mls @ 9.2 mls/hr IV ONETIME ONE Stop: 05/20/21 16:10 Last Admin: 05/19/21 13:22 Dose: 9.2 mls/hr Documented by: AMINATA Sodium Chloride (Sodium Chloride 0.9% 10 Ml Syringe) 10 ml FLUSH ASDIRECTED PRN PRN Reason: Keep Vein Open Last Admin: 05/19/21 11:10 Dose: 10 ml Documented by: GILA Sodium Chloride (Sodium Chloride 0.9% 2.5 Ml Syringe) 2.5 ml FLUSH ASDIRECTED PRN PRN Reason: Keep Vein Open Last Admin: 05/19/21 11:10 Dose: 2.5 ml Documented by: GILA Labs: Laboratory Tests 05/19/21 05/19/21 05/19/21 Range/Units 10:59 10:59 10:59 WBC 21.77 H (4.0-11.0) K/uL RBC 3.90 L (4.50-5.90) M/uL Hgb 11.1 L (13.0-17.0) g/dL Hct 34.4 L (38.0-50.0) % MCV 88.2 (80.0-98.0) fL MCH 28.5 (27.0-32.0) pg MCHC 32.3 (31.0-37.0) g/dL RDW Std Deviation 59.5 (28.0-62.0) fl RDW Coeff of Kwadwo 19 H (11.0-15.0) % Plt Count 382 (150-400) K/uL MPV 11.60 (7.40-12.00) fL Neut % (Auto) 81.9 H (48.0-80.0) % Lymph % (Auto) 9.9 L (16.0-40.0) % [place] % (Auto) 7.9 (0.0-15.0) % Eos % (Auto) 0.1 (0.0-7.0) % Baso % (Auto) 0.2 (0.0-1.5) % Neut # (Auto) 17.8 H (1.4-5.7) K/uL Lymph # (Auto) 2.2 (0.6-2.4) K/uL [place] # (Auto) 1.7 H (0.0-0.8) K/uL Eos # (Auto) 0.0 (0.0-0.7) K/uL Baso # (Auto) 0.1 (0.0-0.1) K/uL Nucleated RBC % 0.0 /100WBC Nucleated RBCs # 0 K/uL INR APTT (18.6-31.3) SEC D-Dimer, Quantitative (0.0-0.50) mg/L FEU ABG pH (7.35-7.45) ABG pCO2 (35-45) mmHG ABG pO2 (80-105) mmHG ABG HCO3 (22-26) mEq/L ABG Total CO2 (23-27) mmol/L ABG Base Excess (-2.0-3.0) Sodium 135 L (136-148) mmol/L Potassium 4.7 (3.5-5.1) mmol/L Chloride 100 (98-107) mmol/L Carbon Dioxide 25.7 (21.0-32.0) mmol/L BUN 17 (7.0-18.0) mg/dL Creatinine 0.8 (0.8-1.3) mg/dL Est Cr Clr Drug Dosing 87.88 mL/min Estimated GFR (MDRD) > 60.0 ml/min Glucose 204 H (74-106) mg/dL Lactic Acid 5.3 H* (0.4-2.0) mmol/L Calcium 8.4 L (8.5-10.1) mg/dL Magnesium 1.5 L (1.8-2.4) mg/dL Total Bilirubin 0.2 (0.2-1.0) mg/dL AST 31 (15-37) IU/L ALT 27 (14-63) IU/L Alkaline Phosphatase 123 H (46-116) U/L Troponin I < 0.050 (0.000-0.056) ng/mL C-Reactive Protein 3.20 H (0.00-0.90) mg/dL B-Natriuretic Peptide (<100) PG/ML Total Protein 7.8 (6.4-8.2) g/dL Albumin 3.1 L (3.4-5.0) g/dL Globulin 4.7 H (2.6-4.0) g/dL Albumin/Globulin Ratio 0.7 L (0.9-1.6) TSH, Ultra Sensitive 3.41 (0.36-3.74) uIU/mL Urine Color Urine Appearance Urine pH (5.0-8.0) Ur Specific [place] (1.001-1.035) Urine Protein (NEGATIVE) mg/dL Urine Glucose (UA) (NEGATIVE) mg/dL Urine Ketones (NEGATIVE) mg/dL Urine Occult Blood (NEGATIVE) Urine Nitrite (NEGATIVE) Urine Bilirubin (NEGATIVE) Urine Urobilinogen (<2.0) EU/dL Ur Leukocyte Esterase (NEGATIVE) U Hyaline Cast (Auto) (0-2/LPF) Urine RBC (0-2/HPF) Urine WBC (0-5/HPF) Ur Epithelial Cells (NONE-FEW) Amorphous Sediment (NEGATIVE) Urine Bacteria (NEGATIVE) Urine Mucus (NONE-MOD) 05/19/21 05/19/21 05/19/21 Range/Units 10:59 10:59 11:10 WBC (4.0-11.0) K/uL RBC (4.50-5.90) M/uL Hgb (13.0-17.0) g/dL Hct (38.0-50.0) % MCV (80.0-98.0) fL MCH (27.0-32.0) pg MCHC (31.0-37.0) g/dL RDW Std Deviation (28.0-62.0) fl RDW Coeff of Kwadwo (11.0-15.0) % Plt Count (150-400) K/uL MPV (7.40-12.00) fL Neut % (Auto) (48.0-80.0) % Lymph % (Auto) (16.0-40.0) % [place] % (Auto) (0.0-15.0) % Eos % (Auto) (0.0-7.0) % Baso % (Auto) (0.0-1.5) % Neut # (Auto) (1.4-5.7) K/uL Lymph # (Auto) (0.6-2.4) K/uL [place] # (Auto) (0.0-0.8) K/uL Eos # (Auto) (0.0-0.7) K/uL Baso # (Auto) (0.0-0.1) K/uL Nucleated RBC % /100WBC Nucleated RBCs # K/uL INR 1.06 APTT 24.2 (18.6-31.3) SEC D-Dimer, Quantitative 1.87 H (0.0-0.50) mg/L FEU ABG pH 7.13 L* (7.35-7.45) ABG pCO2 70 H (35-45) mmHG ABG pO2 40 L (80-105) mmHG ABG HCO3 23 (22-26) mEq/L ABG Total CO2 22.7 L (23-27) mmol/L ABG Base Excess -7.1 L (-2.0-3.0) Sodium (136-148) mmol/L Potassium (3.5-5.1) mmol/L Chloride (98-107) mmol/L Carbon Dioxide (21.0-32.0) mmol/L BUN (7.0-18.0) mg/dL Creatinine (0.8-1.3) mg/dL Est Cr Clr Drug Dosing mL/min Estimated GFR (MDRD) ml/min Glucose (74-106) mg/dL Lactic Acid (0.4-2.0) mmol/L Calcium (8.5-10.1) mg/dL Magnesium (1.8-2.4) mg/dL Total Bilirubin (0.2-1.0) mg/dL AST (15-37) IU/L ALT (14-63) IU/L Alkaline Phosphatase (46-116) U/L Troponin I (0.000-0.056) ng/mL C-Reactive Protein (0.00-0.90) mg/dL B-Natriuretic Peptide 586 H (<100) PG/ML Total Protein (6.4-8.2) g/dL Albumin (3.4-5.0) g/dL Globulin (2.6-4.0) g/dL Albumin/Globulin Ratio (0.9-1.6) TSH, Ultra Sensitive (0.36-3.74) uIU/mL Urine Color Urine Appearance Urine pH (5.0-8.0) Ur Specific [place] (1.001-1.035) Urine Protein (NEGATIVE) mg/dL Urine Glucose (UA) (NEGATIVE) mg/dL Urine Ketones (NEGATIVE) mg/dL Urine Occult Blood (NEGATIVE) Urine Nitrite (NEGATIVE) Urine Bilirubin (NEGATIVE) Urine Urobilinogen (<2.0) EU/dL Ur Leukocyte Esterase (NEGATIVE) U Hyaline Cast (Auto) (0-2/LPF) Urine RBC (0-2/HPF) Urine WBC (0-5/HPF) Ur Epithelial Cells (NONE-FEW) Amorphous Sediment (NEGATIVE) Urine Bacteria (NEGATIVE) Urine Mucus (NONE-MOD) 05/19/21 05/19/21 Range/Units 12:01 13:16 WBC (4.0-11.0) K/uL RBC (4.50-5.90) M/uL Hgb (13.0-17.0) g/dL Hct (38.0-50.0) % MCV (80.0-98.0) fL MCH (27.0-32.0) pg MCHC (31.0-37.0) g/dL RDW Std Deviation (28.0-62.0) fl RDW Coeff of Kwadwo (11.0-15.0) % Plt Count (150-400) K/uL MPV (7.40-12.00) fL Neut % (Auto) (48.0-80.0) % Lymph % (Auto) (16.0-40.0) % [place] % (Auto) (0.0-15.0) % Eos % (Auto) (0.0-7.0) % Baso % (Auto) (0.0-1.5) % Neut # (Auto) (1.4-5.7) K/uL Lymph # (Auto) (0.6-2.4) K/uL [place] # (Auto) (0.0-0.8) K/uL Eos # (Auto) (0.0-0.7) K/uL Baso # (Auto) (0.0-0.1) K/uL Nucleated RBC % /100WBC Nucleated RBCs # K/uL INR APTT (18.6-31.3) SEC D-Dimer, Quantitative (0.0-0.50) mg/L FEU ABG pH 7.11 L* (7.35-7.45) ABG pCO2 82 H (35-45) mmHG ABG pO2 59 L (80-105) mmHG ABG HCO3 26 (22-26) mEq/L ABG Total CO2 25.6 (23-27) mmol/L ABG Base Excess -4.9 L (-2.0-3.0) Sodium (136-148) mmol/L Potassium (3.5-5.1) mmol/L Chloride (98-107) mmol/L Carbon Dioxide (21.0-32.0) mmol/L BUN (7.0-18.0) mg/dL Creatinine (0.8-1.3) mg/dL Est Cr Clr Drug Dosing mL/min Estimated GFR (MDRD) ml/min Glucose (74-106) mg/dL Lactic Acid (0.4-2.0) mmol/L Calcium (8.5-10.1) mg/dL Magnesium (1.8-2.4) mg/dL Total Bilirubin (0.2-1.0) mg/dL AST (15-37) IU/L ALT (14-63) IU/L Alkaline Phosphatase (46-116) U/L Troponin I (0.000-0.056) ng/mL C-Reactive Protein (0.00-0.90) mg/dL B-Natriuretic Peptide (<100) PG/ML Total Protein (6.4-8.2) g/dL Albumin (3.4-5.0) g/dL Globulin (2.6-4.0) g/dL Albumin/Globulin Ratio (0.9-1.6) TSH, Ultra Sensitive (0.36-3.74) uIU/mL Urine Color YELLOW Urine Appearance CLEAR Urine pH 6.0 (5.0-8.0) Ur Specific [place] 1.020 (1.001-1.035) Urine Protein TRACE H (NEGATIVE) mg/dL Urine Glucose (UA) 100 H (NEGATIVE) mg/dL Urine Ketones NEGATIVE (NEGATIVE) mg/dL Urine Occult Blood SMALL H (NEGATIVE) Urine Nitrite NEGATIVE (NEGATIVE) Urine Bilirubin NEGATIVE (NEGATIVE) Urine Urobilinogen 0.2 (<2.0) EU/dL Ur Leukocyte Esterase NEGATIVE (NEGATIVE) U Hyaline Cast (Auto) 0-2 (0-2/LPF) Urine RBC 0-3 (0-2/HPF) Urine WBC 0-2 (0-5/HPF) Ur Epithelial Cells FEW (NONE-FEW) Amorphous Sediment LIGHT (NEGATIVE) Urine Bacteria FEW (NEGATIVE) Urine Mucus LIGHT (NONE-MOD) Meds: Medications Generic Name Dose Route Start Last Admin Trade Name Jostin PRN Reason Stop Dose Admin Fentanyl 50 mcg 05/19/21 11:11 05/19/21 11:47 Fentanyl 50 Mcg/Ml Sdv IVPUSH 50 mcg Q30M PRN Administration Agitation Propofol 100 mls @ 2.776 mls/hr 05/19/21 11:15 05/19/21 12:49 Diprivan 100 Ml IV 40 mcg/kg/min TITRATE PARVEEN 22.208 mls/hr Titration Protocol 5 MCG/KG/MIN Fentanyl Citrate 250 mls @ 9.2 mls/hr 05/19/21 13:00 05/19/21 13:22 Fentanyl 2500 Mcg In Ns 250 Ml (10 Mcg/Ml) IV 05/20/21 16:10 9.2 mls/hr ONETIME ONE Administration Sodium Chloride 10 ml 05/19/21 10:56 05/19/21 11:10 Sodium Chloride 0.9% 10 Ml Syringe FLUSH 10 ml ASDIRECTED PRN Administration Keep Vein Open Sodium Chloride 2.5 ml 05/19/21 10:56 05/19/21 11:10 Sodium Chloride 0.9% 2.5 Ml Syringe FLUSH 2.5 ml ASDIRECTED PRN Administration Keep Vein Open Discontinued Medications Generic Name Dose Route Start Last Admin Trade Name Jostin PRN Reason Stop Dose Admin Enoxaparin Sodium 100 mg 05/19/21 12:25 05/19/21 12:30 Enoxaparin 100 Mg/1 Ml Syringe SUBCUT 05/19/21 12:26 100 mg ONETIME ONE Administration Etomidate 20 mg 05/19/21 10:58 05/19/21 11:11 Etomidate 2 Mg/Ml 20 Ml Sdv IVPUSH 05/19/21 10:59 20 mg ONETIME ONE Administration Furosemide 80 mg 05/19/21 11:12 05/19/21 11:19 Furosemide 40 Mg/4 Ml Vial IVPUSH 05/19/21 11:13 80 mg NOW ONE Administration Sodium Chloride 1,000 mls @ 999 mls/hr 05/19/21 10:56 05/19/21 11:09 Normal Saline IV 05/19/21 11:56 999 mls/hr .Bolus ONE Administration Magnesium Sulfate 2 gm/ Premix 50 mls @ 50 mls/hr 05/19/21 12:00 05/19/21 12:30 IV 05/19/21 12:59 50 mls/hr ONETIME ONE Administration Piperacillin Sod/Tazobactam 50 mls @ 100 mls/hr 05/19/21 12:29 05/19/21 12:36 Sod 3.375 gm/ Sodium Chloride IV 05/19/21 12:58 100 mls/hr ONETIME ONE Administration Methylprednisolone Sodium Succinate 125 mg 05/19/21 11:15 05/19/21 11:18 Methylprednisolone Sodium Succinate 125 Mg/2 Ml Sdv IVPUSH 05/19/21 11:16 125 mg ONETIME ONE Administration Rocuronium [place] 50 mg 05/19/21 11:47 05/19/21 11:47 Rocuronium 100 Mg/10 Ml Mdv IV 05/19/21 11:48 50 mg ONETIME ONE Administration Rocuronium [place] 50 mg 05/19/21 12:40 05/19/21 12:40 Rocuronium 100 Mg/10 Ml Mdv IV 05/19/21 12:41 50 mg ONETIME ONE Administration Succinylcholine Chloride 100 mg 05/19/21 10:58 05/19/21 11:11 Succinylcholine 200 Mg/10 Ml Mdv IV 05/19/21 10:59 100 mg STAT STA Administration - Re-Assessments/Exams Free Text/Narrative Re-Assessment/Exam: 05/19/21 12:09 Patient required intubation for severe respiratory distress. Patient's been given 80 mg of Lasix for pulmonary edema. Methylprednisolone 125 mg also given. Patient's vitals are stable post intubation. Labs remarkable for lactic acidosis, hypercapnic and hypoxic respiratory failure on ABG prior to intubation. White blood cell count is quite elevated in the 20s. Patient also hypomagnesemic, replacement ordered. And currently on hold with [facility] to arrange transfer of care. Will get CT PE to ensure no pulmonary embolism. 05/19/21 12:22 [facility] will call back, their transfer center states that they are currently overwhelmed. 05/19/21 12:[address] reveals extensive bilateral infiltrates consistent with severe atypical pneumonia or severe pulmonary edema. I do not see any large saddle embolism. 05/19/21 12:52 Dr. Shah agrees to accept patient under his service. Dr. Cruz crew mess attendant was also consulted and agrees to transfer. 05/19/21 13:27 Flight team will be here at 3 PM. Patient's at bedside has been made aware of plan and patient's status. She will be available at [phone] if needed. Oncology transfusion center also called in and was given update regarding patient's clinical status. Patient's oncologist Dr. Way was made aware that he has been transferred to [facility]. 05/19/21 13:31 Repeat ABG shows improved oxygenation, similar pH, worsening CO2 retention. Patient's respiratory rate changed from 12 to 16. 05/19/21 13:32 Departure - Departure Time of Disposition: 12:53 Disposition: DC/Tfer to [facility] 02 Condition: Serious Clinical Impression: Acute pulmonary edema Respiratory failure Qualifiers: Chronicity: acute Respiratory failure complication: hypoxia and hypercapnia Qualified Code(s): J96.01 - Acute respiratory failure with hypoxia - Discharge Information Referrals: PCP,None [Primary Care Provider] - Forms: ED Department Discharge Critical Care Note - Critical Care Note Total Time (mins): 60 Sepsis Event Note (ED) - Evaluation Sepsis Screening Result: No Definite Risk - Focused Exam Vital Signs: Vital Signs Temp Pulse Resp BP Pulse Ox 05/19/21 11:25 120 H 171/88 H 84 L 05/19/21 11:16 115 H 161/100 H 76 L 05/19/21 10:59 96.9 F 110 H 16 174/102 H 62 L - My Orders Last 24 Hours: My Active Orders 05/19/21 10:54 CULTURE BLOOD [BC] Stat 05/19/21 10:56 EKG Documentation Completion [RC] STAT Sodium Chloride 0.9% [Saline Flush] 10 ml FLUSH ASDIRECTED PRN Sodium Chloride 0.9% [Saline Flush] 2.5 ml FLUSH ASDIRECTED PRN 05/19/21 10:57 Cardiac Monitoring [RC] . DIRECTED Pulse Oximetry [RC] ASDIRECTED Saline Lock Insert [OM.PC] Stat 05/19/21 10:58 RT Ventilator, Adult [RC] ASDIRECTED 05/19/21 11:04 CULTURE BLOOD [BC] Stat 05/19/21 11:11 fentaNYL 50 mcg IVPUSH Q30M PRN 05/19/21 11:12 RASS Sedation Scale [RC] ASDIRECTED Desired Level of Sedation (RASS) [AST] Click to Edit 05/19/21 11:15 propofoL [Diprivan 100 ML] 100 ml IV TITRATE 05/19/21 11:39 NG Tube Placement [CR] Stat 05/19/21 11:40 Urinary Catheter Assessment [RC] ASDIRECTED 05/19/21 11:45 Insert Urinary Catheter [OM.PC] Q24H 05/19/21 11:46 REFLEX LACTIC ACID YES OR NO [CHEM] Routine 05/19/21 12:05 Nasogastric Orogastric Tube Insertion [OM.PC] Stat 05/19/21 12:28 Blood Culture x2 Reflex Set [OM.PC] Stat 05/19/21 12:44 CORONAVIRUS COVID-19 BERONICA [MOLEC] Stat 05/19/21 13:00 fentaNYL/Normal Saline [fentaNYL 2500 MCG in NS 250 ML (10 MCG/ML)] 250 ml IV ONETIME - Assessment/Plan Last 24 Hours: My Active Orders 05/19/21 10:54 CULTURE BLOOD [BC] Stat 05/19/21 10:56 EKG Documentation Completion [RC] STAT Sodium Chloride 0.9% [Saline Flush] 10 ml FLUSH ASDIRECTED PRN Sodium Chloride 0.9% [Saline Flush] 2.5 ml FLUSH ASDIRECTED PRN 05/19/21 10:57 Cardiac Monitoring [RC] . DIRECTED Pulse Oximetry [RC] ASDIRECTED Saline Lock Insert [OM.PC] Stat 05/19/21 10:58 RT Ventilator, Adult [RC] ASDIRECTED 05/19/21 11:04 CULTURE BLOOD [BC] Stat 05/19/21 11:11 fentaNYL 50 mcg IVPUSH Q30M PRN 05/19/21 11:12 RASS Sedation Scale [RC] ASDIRECTED Desired Level of Sedation (RASS) [AST] Click to Edit 05/19/21 11:15 propofoL [Diprivan 100 ML] 100 ml IV TITRATE 05/19/21 11:39 NG Tube Placement [CR] Stat 05/19/21 11:40 Urinary Catheter Assessment [RC] ASDIRECTED 05/19/21 11:45 Insert Urinary Catheter [OM.PC] Q24H 05/19/21 11:46 REFLEX LACTIC ACID YES OR NO [CHEM] Routine 05/19/21 12:05 Nasogastric Orogastric Tube Insertion [OM.PC] Stat 05/19/21 12:28 Blood Culture x2 Reflex Set [OM.PC] Stat 05/19/21 12:44 CORONAVIRUS COVID-19 BERONICA [MOLEC] Stat 05/19/21 13:00 fentaNYL/Normal Saline [fentaNYL 2500 MCG in NS 250 ML (10 MCG/ML)] 250 ml IV ONETIME
[2021-05-19] MEDS ORDERED: Rocuronium 100 MG/10 ML MDV IV ONE ×2 (11:47→12:40)
--- NOTE | 2021-05-19 11:55 | CR ---
INDICATION: Respiratory distress. COMPARISON: 22 Mar 2021. IMPRESSION: Prominent hazy and patchy airspace opacities mid to lower lungs bilaterally likely prominent pulmonary edema. Pulmonary vascular congestion is increased from before. Airspace opacities are a little more dense on the right. [id number] catheter unchanged. Dictated by Blanco Castaneda MD @ 05/19/2021 11:55:[address] Blanco Castaneda @ May 19 2021 11:55AM
[2021-05-19] MEDS ORDERED: Magnesium Sulfate/Water 2 GM in Premix Bag 1 BAG IV ONE (12:00)
[2021-05-19] MEDS ORDERED: Enoxaparin 100 MG/1 ML Syringe SUBCUT ONE (12:25)
[2021-05-19] MEDS ORDERED: Piperacillin/Tazobactam 3.375 GM in Sodium Chloride 0.9% 50 ML IV ONE (12:29)
[2021-05-19] MEDS ORDERED: NORMAL SALINE IV PRN (12:42)
[2021-05-19] MEDS ORDERED: FENTANYL IV PRN (12:42)
--- NOTE | 2021-05-19 12:42 | CR ---
Indication: Post intubation Technique: Chest 1 view Comparison: May 19, 2021 at 1107 hours Findings/Impression: Cardiovascular and mediastinum: Endotracheal tube is 3 cm above the rica. Unchanged port catheter. Heart size remains normal. Lungs and pleural space: Interval worsening of diffuse bilateral severe pulmonary infiltrates in a pattern suggesting ARDS. No pneumothorax. Bones and soft tissues: No acute findings. Dictated by Dean Powers MD @ 05/19/2021 12:40:[address] Dean Powers @ May 19 2021 12:40PM
[2021-05-19] MEDS ORDERED: fentaNYL/Normal Saline 250 ML IV ONE (13:00)
--- NOTE | 2021-05-19 13:28 | CT ---
Indication: Flash edema while receiving chemotherapy, Pain Technique: Volumetric multidetector CT images of the chest were obtained after the administration of IV contrast. 75 cc Isovue 370 low osmolar intravenous contrast Comparison: None available. Findings: Satisfactory position of endotracheal and enteric tubes. There is edema and multiple pathologic lymph nodes seen within the supraclavicular fossa. There is a right-sided Port-A-Cath in satisfactory position. The thoracic aorta is nonaneurysmal. There is no central filling defect to suggest pulmonary embolism. There are extensive pathologic mediastinal and hilar lymph nodes commensurate with likely reactive and metastatic changes. The trachea and bronchi are well aerated without significant bronchiectasis. There is extensive interstitial ground-glass and airspace opacity with marked interlobular and intralobular septal thickening commensurate with extensive pulmonary edema and/or multifocal infiltrates with small basilar effusions. There is no pneumothorax. There is no evidence of pulmonary mass or suspicious pulmonary nodule. There is demonstration of likely moderate portal edema within the partially visualized liver. There is a nasogastric tube coiled within the gastric lumen. The thoracic vertebral body heights are grossly maintained with mild to moderate multilevel degenerative disc disease. Impression: Extensive interstitial, ground-glass, and airspace opacity with marked interlobular and intralobular septal thickening consistent with severe pulmonary edema and/or multifocal infiltrates with extensive mediastinal and hilar adenopathy. There are trace bibasilar effusions. No evidence of pulmonary embolus. Satisfactory position of support lines and tubes. Please note that all CT scans at this facility use dose modulation, iterative reconstruction, and/or weight-based dosing when appropriate to reduce radiation dose to as low as reasonably achievable. Dictated by Palmer Manzanares MD @ 05/19/2021 1:27:[address] Palmer Manzanares @ May 19 2021 1:27PM
[2021-05-19 14:15] VITALS: BP 73/40; PULSE 86
[2021-05-19] MEDS ORDERED: Iopamidol 755 MG/ML 500 ML Multipack Bottle IVPUSH STA (14:53)
== END 2021-05-19 14:45 ==
LOC: MW.ED 10:52
DX: J96.02 Acute respiratory failure with hypercapnia (principal); J96.01 Acute respiratory failure with hypoxia; J81.0 Acute pulmonary edema; I10 Essential (primary) hypertension; E78.00 Pure hypercholesterolemia, unspecified; K21.9 Gastro-esophageal reflux disease without esophagitis; E11.9 Type 2 diabetes mellitus without complications; R00.0 Tachycardia, unspecified; F17.210 Nicotine dependence, cigarettes, uncomplicated; E66.9 Obesity, unspecified; Z68.30 Body mass index [BMI] 30.0-30.9, adult; Z79.82 Long term (current) use of aspirin; Z79.4 Long term (current) use of insulin; Z79.899 Other long term (current) drug therapy
CPT/HCPCS: 31500; 36415; 36600; 51702; 71045; 71275; 80053; 81001; 82803; 83605; 83735; 83880; 84443; 84484; 85025; 85379; 85610; 85730; 86140; 87040; 87635; 93005; 96365; 96366; 96368; 96372; 96375; 96376; 99285; J0330; J1650; J1940; J2543; J2704; J2930; J3010; J3475; J3490; J7030; Q9967; U0002

== ENCOUNTER 2021-06-15 12:15 | Inpatient (IN) | payer OTHER, MEDICARE ==
[2021-06-15] MEDS ORDERED: Nitroglycerin 0.4 MG Tab.SL ONE (12:19)
[2021-06-15] MEDS ORDERED: Nitroglycerin 0.4 MG Tab.SL SL ONE ×2 (12:20→12:21)
[2021-06-15] MEDS ORDERED: Etomidate 2 MG/ML 20 ML SDV IVPUSH ONE (12:22)
[2021-06-15] MEDS ORDERED: Succinylcholine 200 MG/10 ML MDV IV STA (12:22)
[2021-06-15] MEDS ORDERED: Sodium Chloride 0.9% 2.5 ML Syringe FLUSH PRN (12:24)
[2021-06-15] MEDS ORDERED: Sodium Chloride 0.9% 1,000 ML IV ONE (12:24)
[2021-06-15] MEDS ORDERED: Sodium Chloride 0.9% 10 ML Syringe FLUSH PRN (12:24)
[2021-06-15] MEDS ORDERED: Piperacillin/Tazobactam 3.375 GM in Sodium Chloride 0.9% 50 ML IV ONE (12:28)
[2021-06-15] MEDS ORDERED: Furosemide 40 MG/4 ML VIAL IVPUSH ONE ×2 (12:28→18:59)
[2021-06-15] MEDS ORDERED: Furosemide 40 MG/4 ML VIAL ONE (12:29)
[2021-06-15] MEDS ORDERED: propofoL 100 ML IV SCH (12:30)
[2021-06-15] MEDS ORDERED: Nitroglycerin/D5W 25 MG/250 ML BOTTLE ONE (12:30)
--- NOTE | 2021-06-15 12:46 | EDM.PDOC ---
ED HPI GENERAL MEDICAL PROBLEM - General Chief Complaint: Respiratory Problem Stated Complaint: DIFFICULTY BREATHING Time Seen by Provider: 06/15/21 13:00 Source of Information: Reports: Patient - History of Present Illness INITIAL COMMENTS - FREE TEXT/NARRATIVE: 66-year-old male history of metastatic cancer presents shortness of breath after chemotherapy. Patient was in the hospital receiving chemotherapy and developed significant shortness of breath and staff rushed to the patient side and brought him to the emergency department. Patient had a similar episode recently in which he was deemed to be in flash pulmonary edema and intubated. Patient himself complains of shortness of breath states he was doing fine prior to this chemotherapy. There is no chest pain. No recent fevers chills or infectious complaints. Additional information not available secondary to patient's extremis - Related Data Allergies Allergy/AdvReac Type Severity Reaction Status Date / Time No Known Allergies Allergy Verified 06/15/21 12:18 Home Meds: Home Meds Aspirin 325 mg PO DAILY 02/16/21 [History] Furosemide 60 mg PO DAILY 02/16/21 [History] Insulin Degludec [Tresiba] 10 unit SQ BEDTIME 02/16/21 [History] Lansoprazole [Prevacid] 30 mg PO DAILY PRN 02/16/21 [History] Metoprolol Succinate 50 mg PO DAILY 02/16/21 [History] Potassium Chloride 20 meq PO DAILY 02/16/21 [History] atorvaSTATin [Lipitor] 10 mg PO DAILY 02/16/21 [History] Fluticasone Propionate [Flonase Allergy Relief] 1 spray NASBOTH DAILY PRN 03/20/21 [History] Insulin Aspart [NovoLOG] 1 injection SUBCUT ASDIRECTED 03/20/21 [History] Hydrocodone/Acetaminophen [Vicodin Hp 10-300 mg Tablet] 1 each PO Q6H PRN #6 tablet 03/22/21 [Rx] traZODone 100 mg PO BEDTIME 06/15/21 [History] Past Medical History HEENT History: Reports: Other (See Below) Other HEENT History: wears glasses, top and bottom dentures Cardiovascular History: Reports: High Cholesterol, Hypertension, PVD, Stents Respiratory History: Reports: None Other Respiratory History: 45 year smoking hx, presently smokes alittle over 1 PPD Gastrointestinal History: Reports: GERD Genitourinary History: Reports: None Musculoskeletal History: Reports: None Neurological History: Reports: None Psychiatric History: Reports: None Endocrine/Metabolic History: Reports: Diabetes, Type II, Obesity/BMI 30+ Hematologic History: Reports: None Immunologic History: Reports: None Oncologic (Cancer) History: Reports: Liver Dermatologic History: Reports: None - Infectious Disease History Infectious Disease History: Reports: Chicken Pox, Measles, Mumps - Past Surgical History Head Surgeries/Procedures: Reports: None HEENT Surgical History: Reports: None Cardiovascular Surgical History: Reports: Vascular Surgery Other Cardiovascular Surgeries/Procedures: left femerol popiteal bypass, stent placement to right leg Respiratory Surgical History: Reports: None GI Surgical History: Reports: None Male Surgical History: Reports: None Endocrine Surgical History: Reports: None Neurological Surgical History: Reports: None Musculoskeletal Surgical History: Reports: None Oncologic Surgical History: Reports: None Dermatological Surgical History: Reports: None Social & Family History - Family History Family Medical History: No Pertinent Family History ED ROS GENERAL - Review of Systems Review Of Systems: Unable To Obtain Reason Not Obtained: clinical condition ED EXAM, GENERAL - Physical Exam Exam: See Below Free Text/Narrative:: CONSTITUTIONAL: Ill appearing. Patient toxic SKIN: mottleed, cool extremities HENT: Normocephalic, atraumatic, PULMONARY: Tachypnea, retractions, bilateral rales CARDIOVASCULAR: regular rate, No murmur, rubs, or gallops GASTROINTESTINAL: soft, nondistended, nontender NEUROLOGIC: normal speech, II-XII intact. light touch/5/5 power equal and symmetric in upper and lower extremities without deficit MUSCULOSKELETAL: no gross deformities, atraumatic PSYCHIATRIC: normal mood and affect #1 Interpretation Time: 12:46 EKG Interpretation Comments: 124, sinus tachycardia, nonspecific ST/T findings Course - Vital Signs Text/Narrative:: Differential diagnosis: Pulmonary edema, pneumonia, Covid, PE, reactive airway disease, ACS, other Patient presents to the emergency department in extremis. Patient with significant shortness of breath and hypoxia. Fortunately the patient had significant blood pressure and in preparation for noninvasive positive pressure support 2 nitroglycerin were given under the tongue. Patient has similar presentation with pulmonary edema recently. Patient did respond to CPAP. Another sublingual nitroglycerin was placed and nitro drip started in addition to Lasix. Patient was covered for antibiotics to cover for the event of infection. Covid negative. CT negative for PE. Admission for continued pressure support, diuresis and continue treatment and management. Patient without any chest pain. EKG nonspecific with negative cardiac enzymes Critical care: I spent 75 minutes of critical care time with this patient not including reportable procedures. There was an acute impairment of an organ system with a high probability of imminent or life threatening deterioration in the patient`s condition. Interventions and changes required in the course of therapy are located in the chart. Time involved was spent in direct patient care, reviewing ancillary data, old records, consulting with decision makers, EMS, other do ctors, giving orders and documenting. Last Recorded V/S: Last Vital Signs Temp 37.2 C 06/15/21 12:18 Pulse 87 06/15/21 16:40 Resp 24 H 06/15/21 16:40 BP 139/69 06/15/21 16:40 Pulse Ox 98 06/15/21 16:40 - Orders/Labs/Meds Orders: Active Orders 24 hr Category Date Time Status Cardiac Monitoring [RC] . DIRECTED Care 06/15/21 12:24 Active RASS Sedation Scale [RC] ASDIRECTED Care 06/15/21 12:30 Active CULTURE BLOOD [BC] Stat Lab 06/15/21 12:32 Received CULTURE BLOOD [BC] Stat Lab 06/15/21 12:35 Received REFLEX LACTIC ACID YES OR NO [CHEM] Routine Lab 06/15/21 13:26 Received UA RFX SRIKANTH AND CULT IF INDIC [URIN] Stat Lab 06/15/21 12:24 Ordered Sodium Chloride 0.9% [Saline Flush] Med 06/15/21 12:24 Active 10 ml FLUSH ASDIRECTED PRN Sodium Chloride 0.9% [Saline Flush] Med 06/15/21 12:24 Active 2.5 ml FLUSH ASDIRECTED PRN Blood Culture x2 Reflex Set [OM.PC] Stat Oth 06/15/21 12:27 Ordered Desired Level of Sedation (RASS) [AST] Click to Edit Oth 06/15/21 12:30 Ordered Saline Lock Insert [OM.PC] Stat Oth 06/15/21 12:24 Ordered Medication Orders Acetaminophen (Acetaminophen 325 Mg Tab) 650 mg PO Q4H PRN PRN Reason: Pain (Mild 1-3)/fever Albuterol/Ipratropium (Albuterol/Ipratropium 3.0-0.5 Mg/3 Ml Neb Soln) 3 ml NEB Q4HRRT PRN PRN Reason: Shortness Of Breath/wheezing Furosemide (Furosemide 40 Mg/4 Ml Vial) 40 mg IVPUSH BID [facility] Heparin Sodium (Porcine) (Heparin Sodium 5,000 Units/Ml Vial) 5,000 units SUBCUT Q8H [facility] Nitroglycerin/Dextrose (Nitroglycerin 25 Mg/D5w 250 Ml) 25 mg in 250 mls @ 18 mls/hr IV TITRATE [facility]; Protocol Last Admin: 06/15/21 15:45 Dose: 30 mcg/min, 18 mls/hr Documented by: SUMAN Pantoprazole Sodium 40 mg/ (Sodium Chloride) 10 mls @ 300 mls/hr IV DAILY [facility] Piperacillin Sod/Tazobactam (Sod 3.375 gm/ Sodium Chloride) 50 mls @ 100 mls/hr IV Q6H [facility] Vancomycin HCl (Vancomycin 1.5 Gm/300 Ml) 300 mls @ 200 mls/hr IV Q12H [facility] Ondansetron HCl (Ondansetron 4 Mg/2 Ml Sdv) 4 mg IVPUSH Q4H PRN PRN Reason: Nausea/Vomiting Sodium Chloride (Sodium Chloride 0.9% 10 Ml Syringe) 10 ml FLUSH ASDIRECTED PRN PRN Reason: Keep Vein Open Last Admin: 06/15/21 14:05 Dose: 10 ml Documented by: SUMAN Sodium Chloride (Sodium Chloride 0.9% 2.5 Ml Syringe) 2.5 ml FLUSH ASDIRECTED PRN PRN Reason: Keep Vein Open Last Admin: 06/15/21 14:05 Dose: 2.5 ml Documented by: SUMAN Vancomycin HCl (Pharmacy To Dose - Vancomycin) 1 dose .XX ASDIRECTED [facility] Labs: Laboratory Tests 06/15/21 06/15/21 06/15/21 Range/Units 12:28 12:28 12:28 WBC (4.0-11.0) K/uL RBC (4.50-5.90) M/uL Hgb (13.0-17.0) g/dL Hct (38.0-50.0) % MCV (80.0-98.0) fL MCH (27.0-32.0) pg MCHC (31.0-37.0) g/dL RDW Std Deviation (28.0-62.0) fl RDW Coeff of Kwadwo (11.0-15.0) % Plt Count (150-400) K/uL MPV (7.40-12.00) fL Neut % (Auto) (48.0-80.0) % Lymph % (Auto) (16.0-40.0) % [place] % (Auto) (0.0-15.0) % Eos % (Auto) (0.0-7.0) % Baso % (Auto) (0.0-1.5) % Neut # (Auto) (1.4-5.7) K/uL Lymph # (Auto) (0.6-2.4) K/uL [place] # (Auto) (0.0-0.8) K/uL Eos # (Auto) (0.0-0.7) K/uL Baso # (Auto) (0.0-0.1) K/uL Nucleated RBC % /100WBC Nucleated RBCs # K/uL INR 1.10 Sodium 135 L (136-148) mmol/L Potassium 3.8 (3.5-5.1) mmol/L Chloride 98 (98-107) mmol/L Carbon Dioxide 27.6 (21.0-32.0) mmol/L BUN 15 (7.0-18.0) mg/dL Creatinine 0.9 (0.8-1.3) mg/dL Est Cr Clr Drug Dosing 88.62 mL/min Estimated GFR (MDRD) > 60.0 ml/min Glucose 249 H (74-106) mg/dL Lactic Acid (0.4-2.0) mmol/L Calcium 8.5 (8.5-10.1) mg/dL Phosphorus 4.3 (2.6-4.7) mg/dL Magnesium 1.6 L (1.8-2.4) mg/dL Total Bilirubin 0.4 (0.2-1.0) mg/dL AST 26 (15-37) IU/L ALT 18 (14-63) IU/L Alkaline Phosphatase 110 (46-116) U/L Troponin I < 0.050 (0.000-0.056) ng/mL B-Natriuretic Peptide (<100) PG/ML Total Protein 7.5 (6.4-8.2) g/dL Albumin 3.1 L (3.4-5.0) g/dL Globulin 4.4 H (2.6-4.0) g/dL Albumin/Globulin Ratio 0.7 L (0.9-1.6) 06/15/21 06/15/21 06/15/21 Range/Units 12:35 12:35 12:35 WBC 11.73 H (4.0-11.0) K/uL RBC 3.44 L (4.50-5.90) M/uL Hgb 10.0 L (13.0-17.0) g/dL Hct 31.3 L (38.0-50.0) % MCV 91.0 (80.0-98.0) fL MCH 29.1 (27.0-32.0) pg MCHC 31.9 (31.0-37.0) g/dL RDW Std Deviation 73.2 H (28.0-62.0) fl RDW Coeff of Kwadwo 23 H (11.0-15.0) % Plt Count 328 (150-400) K/uL MPV 11.60 (7.40-12.00) fL Neut % (Auto) 72.0 (48.0-80.0) % Lymph % (Auto) 15.6 L (16.0-40.0) % [place] % (Auto) 12.1 (0.0-15.0) % Eos % (Auto) 0.1 (0.0-7.0) % Baso % (Auto) 0.2 (0.0-1.5) % Neut # (Auto) 8.5 H (1.4-5.7) K/uL Lymph # (Auto) 1.8 (0.6-2.4) K/uL [place] # (Auto) 1.4 H (0.0-0.8) K/uL Eos # (Auto) 0.0 (0.0-0.7) K/uL Baso # (Auto) 0.0 (0.0-0.1) K/uL Nucleated RBC % 0.0 /100WBC Nucleated RBCs # 0 K/uL INR Sodium (136-148) mmol/L Potassium (3.5-5.1) mmol/L Chloride (98-107) mmol/L Carbon Dioxide (21.0-32.0) mmol/L BUN (7.0-18.0) mg/dL Creatinine (0.8-1.3) mg/dL Est Cr Clr Drug Dosing mL/min Estimated GFR (MDRD) ml/min Glucose (74-106) mg/dL Lactic Acid 2.8 H* (0.4-2.0) mmol/L Calcium (8.5-10.1) mg/dL Phosphorus (2.6-4.7) mg/dL Magnesium (1.8-2.4) mg/dL Total Bilirubin (0.2-1.0) mg/dL AST (15-37) IU/L ALT (14-63) IU/L Alkaline Phosphatase (46-116) U/L Troponin I (0.000-0.056) ng/mL B-Natriuretic Peptide 775 H (<100) PG/ML Total Protein (6.4-8.2) g/dL Albumin (3.4-5.0) g/dL Globulin (2.6-4.0) g/dL Albumin/Globulin Ratio (0.9-1.6) Meds: Medications Generic Name Dose Route Start Last Admin Trade Name Freq PRN Reason Stop Dose Admin Acetaminophen 650 mg 06/15/21 16:11 Acetaminophen 325 Mg Tab PO Q4H PRN Pain (Mild 1-3)/fever Albuterol/Ipratropium 3 ml 06/15/21 16:11 Albuterol/Ipratropium 3.0-0.5 Mg/3 Ml Neb Soln NEB Q4HRRT PRN Shortness Of Breath/wheezing Furosemide 40 mg 06/16/21 09:00 Furosemide 40 Mg/4 Ml Vial IVPUSH BID [facility] Heparin Sodium (Porcine) 5,000 units 06/15/21 16:15 Heparin Sodium 5,000 Units/Ml Vial SUBCUT Q8H [facility] Nitroglycerin/Dextrose 25 mg in 250 mls @ 18 mls/hr 06/15/21 15:45 06/15/21 15:45 Nitroglycerin 25 Mg/D5w 250 Ml IV 30 mcg/min TITRATE PAR[facility] 18 mls/hr Administration Protocol 30 MCG/MIN Pantoprazole Sodium 40 mg/ 10 mls @ 300 mls/hr 06/16/21 09:00 Sodium Chloride IV DAILY [facility] Piperacillin Sod/Tazobactam 50 mls @ 100 mls/hr 06/15/21 20:00 Sod 3.375 gm/ Sodium Chloride IV Q6H [facility] Vancomycin HCl 300 mls @ 200 mls/hr 06/15/21 21:00 Vancomycin 1.5 Gm/300 Ml IV Q12H [facility] Ondansetron HCl 4 mg 06/15/21 16:11 Ondansetron 4 Mg/2 Ml Sdv IVPUSH Q4H PRN Nausea/Vomiting Sodium Chloride 10 ml 06/15/21 12:24 06/15/21 14:05 Sodium Chloride 0.9% 10 Ml Syringe FLUSH 10 ml ASDIRECTED PRN Administration Keep Vein Open Sodium Chloride 2.5 ml 06/15/21 12:24 06/15/21 14:05 Sodium Chloride 0.9% 2.5 Ml Syringe FLUSH 2.5 ml ASDIRECTED PRN Administration Keep Vein Open Vancomycin HCl 1 dose 06/15/21 16:30 Pharmacy To Dose - Vancomycin .XX ASDIRECTED PAR[facility] Discontinued Medications Generic Name Dose Route Start Last Admin Trade Name Freq PRN Reason Stop Dose Admin Etomidate 20 mg 06/15/21 12:22 06/15/21 14:47 Etomidate 2 Mg/Ml 20 Ml Sdv IVPUSH 06/15/21 12:23 Not Given ONETIME ONE Furosemide 80 mg 06/15/21 12:28 06/15/21 12:35 Furosemide 40 Mg/4 Ml Vial IVPUSH 06/15/21 12:29 80 mg NOW ONE Administration Furosemide Confirm 06/15/21 12:29 06/15/21 14:47 Furosemide 40 Mg/4 Ml Vial Administered 06/15/21 12:30 Not Given Dose 80 mg .ROUTE .STK-MED ONE Sodium Chloride 1,000 mls @ 999 mls/hr 06/15/21 12:24 06/15/21 14:06 Normal Saline IV 06/15/21 13:24 999 mls/hr STAT ONE Administration Piperacillin Sod/Tazobactam 50 mls @ 100 mls/hr 06/15/21 12:28 06/15/21 14:03 Sod 3.375 gm/ Sodium Chloride IV 06/15/21 12:57 100 mls/hr ONETIME ONE Administration Vancomycin HCl 1 gm/ Sodium 250 mls @ 166 mls/hr 06/15/21 12:28 06/15/21 14:03 Chloride IV 06/15/21 13:58 166 mls/hr ONETIME ONE Administration Propofol 100 mls @ 3 mls/hr 06/15/21 12:30 Diprivan 100 Ml IV TITRATE PAR[facility] Protocol 5 MCG/KG/MIN Nitroglycerin/Dextrose Confirm 06/15/21 12:30 06/15/21 14:47 Nitroglycerin 25 Mg/D5w 250 Ml Administered 06/15/21 12:31 Not Given Dose 25 mg in 250 mls @ as directed .ROUTE .STK-MED ONE Iopamidol 100 ml 06/15/21 13:48 06/15/21 13:50 Iopamidol 755 Mg/Ml 500 Ml Multipack Bottle IVPUSH 06/15/21 13:49 100 ml ONETIME STA Administration Nitroglycerin 0.4 mg 06/15/21 12:20 06/15/21 12:28 Nitroglycerin 0.4 Mg Tab.Sl SL 06/15/21 12:21 0.4 mg ONETIME ONE Administration Nitroglycerin Confirm 06/15/21 12:19 06/15/21 12:21 Nitroglycerin 0.4 Mg Tab.Sl Administered 06/15/21 12:20 Not Given Dose 0.4 mg .ROUTE .STK-MED ONE Nitroglycerin 0.4 mg 06/15/21 12:21 06/15/21 12:40 Nitroglycerin 0.4 Mg Tab.Sl SL 06/15/21 12:22 0.4 mg ONETIME ONE Administration Succinylcholine Chloride 100 mg 06/15/21 12:22 06/15/21 14:48 Succinylcholine 200 Mg/10 Ml Mdv IV 06/15/21 12:23 Not Given NOW STA Departure - Departure Time of Disposition: 15:25 Disposition: Admitted As Inpatient 66 Condition: Fair Clinical Impression: Pulmonary edema - Discharge Information Sepsis Event Note (ED) - Focused Exam Vital Signs: Vital Signs Temp Pulse Resp BP BP Pulse Ox 06/15/21 14:45 94 148/70 H 98 06/15/21 14:35 103 H 168/75 H 97 06/15/21 14:05 118 H 24 H 169/93 H 94 L 06/15/21 13:55 106 H 26 H 167/81 H 94 L 06/15/21 13:05 102 H 27 H 159/85 H 97 08/19/21 12:55 110 H 25 H 153/84 H 95 06/15/21 12:40 155/85 H 06/15/21 12:36 124 H 27 H 158/76 H 95 06/15/21 12:28 181/97 H 06/15/21 12:27 127 H 28 H 188/97 H 95 06/15/21 12:18 37.2 C 112 H 28 H 191/115 H 65 L
[2021-06-15 13:15] LABS: BLOOD UREA NITROGEN,BUN 15 mg/dL (7.0-18.0); CARBON DIOXIDE,CO2 27.6 mmol/L (21.0-32.0); CHLORIDE,CL 98 mmol/L (98-107); GLUCOSE RANDOM 249 mg/dL (74-106); POTASSIUM,K 3.8 mmol/L (3.5-5.1); SODIUM,NA 135 mmol/L (136-148)
--- NOTE | 2021-06-15 13:29 | CR ---
Indication: Shortness of breath Comparison: None available. Technique: Single AP view chest Findings: There is hyperinflation and chronic interstitial change. There are bibasilar pleural effusions with extensive interstitial and airspace opacities seen throughout the bilateral hemithoraces likely representing extensive multifocal infiltrates and/or pulmonary edema. The cardiac silhouette is mildly prominent with a right-sided Port-A-Cath. The bony thorax is grossly intact. Impression: Hyperinflation and chronic interstitial changes with trace bibasilar effusions with increased interstitial and airspace opacities throughout the bilateral hemithoraces likely representing multifocal infiltrates versus pulmonary edema. Dictated by Palmer Manzanares MD @ 06/15/2021 1:28:[address] Palmer Manzanares @ Jun 15 2021 1:28PM
[2021-06-15] MEDS ORDERED: Iopamidol 755 MG/ML 500 ML Multipack Bottle IVPUSH STA (13:48)
--- NOTE | 2021-06-15 14:58 | CT ---
INDICATION: Hypoxia. Rule out pulmonary embolism. TECHNIQUE: Volumetric helical scanning of the thorax was performed during infusion of 100 cc of Isovue 370 contrast material IV, timing optimized for pulmonary arterial opacification. Coronal and sagittal reconstructions were obtained. COMPARISON: PET-CT of 06/06/2021. FINDINGS: The images are of acceptable quality and demonstrate uniform vascular enhancement within the pulmonary arteries. No pulmonary arterial filling defect is identified. The heart size is normal. Calcified coronary arterial plaque is demonstrated. Diffuse ground-glass infiltrates in both lungs are again demonstrated with areas of greater patchy density in both lungs. Small pleural effusions are again demonstrated bilaterally, right greater the left. Mediastinal lymphadenopathy is again demonstrated along with presumed hilar adenopathy bilaterally. IMPRESSION: 1. Negative for pulmonary embolism. 2. Increased pulmonary infiltrates bilaterally. 3. Small pleural effusions bilaterally, right greater the left. 4. Mediastinal and bilateral hilar lymphadenopathy. 5. Coronary artery disease. Please note that all CT scans at this facility use dose modulation, iterative reconstruction, and/or weight-based dosing when appropriate to reduce radiation dose to as low as reasonably achievable. Dictated by Ajit Damian MD @ 06/15/2021 2:57:[address] Ajit Damian @ Jun 15 2021 2:57PM
[2021-06-15] MEDS ORDERED: Nitroglycerin/D5W 25 MG/250 ML BOTTLE IV SCH (15:45)
[2021-06-15] MEDS ORDERED: Ondansetron 4 MG/2 ML SDV IVPUSH PRN (16:11)
[2021-06-15] MEDS ORDERED: Albuterol/Ipratropium 3.0-0.5 MG/3 ML Neb Soln NEB PRN (16:11)
[2021-06-15] MEDS ORDERED: Acetaminophen 325 MG Tab PO PRN (16:11)
[2021-06-15] MEDS ORDERED: Heparin Sodium 5,000 Units/ML Vial SUBCUT SCH (16:15)
[2021-06-15] MEDS ORDERED: Magnesium Sulfate/Water 2 GM in Premix Bag 1 BAG IV ONE (18:05)
[2021-06-15] MEDS ORDERED: Fluticasone Propionate Nasal Spray 16 GM Bottle NASBOTH PRN (18:07)
--- NOTE | 2021-06-15 18:15 | PCM.HP.2 ---
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 Patient was getting outpatient chemotherapy, etoposide. He tolerated the infusion well up untill the end when he became acutely dyspneic. Patient was diaphoretic, pale. Patient was brought to emergency department for evaluation. Patient is tachypneic and only able to speak in short sentences, denies chest pain but endorses shortness of breath. Notes his lower extremity pitting edema is at baseline for him. States he is compliant with his medications. He has had reaction ;like this before after his chemo last month when he went into flash pulmonary edema and was intubated and shipped to [place]. In the ER patients CXR showed possible pulmonary edema va infiltrates, CT angio ruled out PE or large effusions, CBC showed mild leucocytosis, lactic acid was elevated as well to 2.8, troponin was negative, ekh=g showed no acute ischemic changes. Patient was started on BiPAP which he tolerated well, IV lasix was given as well. Patient was started on nitro gtt due to high blood pressure. Patient was admitted to icu for further management. - Related Data Allergies/Adverse Reactions: Allergies Allergy/AdvReac Type Severity Reaction Status Date / Time No Known Allergies Allergy Verified 06/15/21 12:18 Home Medications: Home Meds Aspirin 325 mg PO DAILY 02/16/21 [History] Furosemide 60 mg PO DAILY 02/16/21 [History] Insulin Degludec [Tresiba] 10 unit SQ BEDTIME 02/16/21 [History] Lansoprazole [Prevacid] 30 mg PO DAILY PRN 02/16/21 [History] Metoprolol Succinate 50 mg PO DAILY 02/16/21 [History] Potassium Chloride 20 meq PO DAILY 02/16/21 [History] atorvaSTATin [Lipitor] 10 mg PO DAILY 02/16/21 [History] Fluticasone Propionate [Flonase Allergy Relief] 1 spray NASBOTH DAILY PRN 03/20/21 [History] Insulin Aspart [NovoLOG] 1 injection SUBCUT ASDIRECTED 03/20/21 [History] Hydrocodone/Acetaminophen [Vicodin Hp 10-300 mg Tablet] 1 each PO Q6H PRN #6 tablet 03/22/21 [Rx] traZODone 100 mg PO BEDTIME 06/15/21 [History] Past Medical History HEENT History: Reports: Other (See Below) Other HEENT History: wears glasses, top and bottom dentures Cardiovascular History: Reports: High Cholesterol, Hypertension, PVD, Stents Respiratory History: Reports: None Other Respiratory History: 45 year smoking hx, presently smokes alittle over 1 P PD Gastrointestinal History: Reports: GERD Genitourinary History: Reports: None Musculoskeletal History: Reports: None Neurological History: Reports: None Psychiatric History: Reports: None Endocrine/Metabolic History: Reports: Diabetes, Type II, Obesity/BMI 30+ Hematologic History: Reports: None Immunologic History: Reports: None Oncologic (Cancer) History: Reports: Liver Dermatologic History: Reports: None - Infectious Disease History Infectious Disease History: Reports: Chicken Pox, Measles, Mumps - Past Surgical History Head Surgeries/Procedures: Reports: None HEENT Surgical History: Reports: None Cardiovascular Surgical History: Reports: Vascular Surgery Other Cardiovascular Surgeries/Procedures: left femerol popiteal bypass, stent placement to right leg Respiratory Surgical History: Reports: None GI Surgical History: Reports: None Male Surgical History: Reports: None Endocrine Surgical History: Reports: None Neurological Surgical History: Reports: None Musculoskeletal Surgical History: Reports: None Oncologic Surgical History: Reports: None Dermatological Surgical History: Reports: None Social & Family History - Family History Family Medical History: No Pertinent Family History - Tobacco Use Tobacco Use Status *Q: Never Tobacco User - Recreational Drug Use Recreational Drug Use: No H&P Review of Systems - Review of Systems: Review Of Systems: See Below General: Reports: Malaise, Weakness, Fatigue. Denies: Fever, Chills Pulmonary: Reports: Shortness of Breath. Denies: Wheezing, Pleuritic Chest Pain, Hemoptysis Cardiovascular: Reports: Dyspnea on Exertion, Orthopnea, Edema, Lightheadedness. Denies: Chest Pain, Palpitations, Syncope Gastrointestinal: Denies: Abdominal Pain, Anorexia, Black Stool Genitourinary: Denies: Dysuria, Frequency, Burning Musculoskeletal: Denies: Neck Pain, Shoulder Pain, Arm Pain Skin: Denies: Cyanosis, Jaundice, Mottled Psychiatric: Denies: Confusion, Depression, Mood Lability Neurological: Denies: Confusion, Dizziness, Paresthesia, Pre-Existing Deficit Exam - Exam Exam: See Below - Vital Signs Vital Signs: Last Vital Signs Temp 37.2 C 06/15/21 12:18 Pulse 87 06/15/21 16:40 Resp 24 H 06/15/21 16:40 BP 139/69 06/15/21 16:40 Pulse Ox 98 06/15/21 16:40 Weight: 99.79 kg - Exam Quality Assessment: Supplemental Oxygen General: Alert, Oriented, Moderate Distress Neck: Supple Lungs: Decreased Breath Sounds, Crackles, Rales Cardiovascular: Regular Rate, Regular Rhythm, Normal S1, Normal S2 GI/Abdominal Exam: Normal Bowel Sounds Extremities: Pedal Edema, Leg Pain - Patient Data Lab Results Last 24 hrs: Laboratory Results - last 24 hr 06/15/21 06/15/21 06/15/21 Range/Units 12:28 12:28 12:28 WBC (4.0-11.0) K/uL RBC (4.50-5.90) M/uL Hgb (13.0-17.0) g/dL Hct (38.0-50.0) % MCV (80.0-98.0) fL MCH (27.0-32.0) pg MCHC (31.0-37.0) g/dL RDW Std Deviation (28.0-62.0) fl RDW Coeff of Kwadwo (11.0-15.0) % Plt Count (150-400) K/uL MPV (7.40-12.00) fL Neut % (Auto) (48.0-80.0) % Lymph % (Auto) (16.0-40.0) % [place] % (Auto) (0.0-15.0) % Eos % (Auto) (0.0-7.0) % Baso % (Auto) (0.0-1.5) % Neut # (Auto) (1.4-5.7) K/uL Lymph # (Auto) (0.6-2.4) K/uL [place] # (Auto) (0.0-0.8) K/uL Eos # (Auto) (0.0-0.7) K/uL Baso # (Auto) (0.0-0.1) K/uL Nucleated RBC % /100WBC Nucleated RBCs # K/uL INR 1.10 Sodium 135 L (136-148) mmol/L Potassium 3.8 (3.5-5.1) mmol/L Chloride 98 (98-107) mmol/L Carbon Dioxide 27.6 (21.0-32.0) mmol/L BUN 15 (7.0-18.0) mg/dL Creatinine 0.9 (0.8-1.3) mg/dL Est Cr Clr Drug Dosing 88.62 mL/min Estimated GFR (MDRD) > 60.0 ml/min Glucose 249 H (74-106) mg/dL Lactic Acid (0.4-2.0) mmol/L Calcium 8.5 (8.5-10.1) mg/dL Phosphorus 4.3 (2.6-4.7) mg/dL Magnesium 1.6 L (1.8-2.4) mg/dL Total Bilirubin 0.4 (0.2-1.0) mg/dL AST 26 (15-37) IU/L ALT 18 (14-63) IU/L Alkaline Phosphatase 110 (46-116) U/L Troponin I < 0.050 (0.000-0.056) ng/mL B-Natriuretic Peptide (<100) PG/ML Total Protein 7.5 (6.4-8.2) g/dL Albumin 3.1 L (3.4-5.0) g/dL Globulin 4.4 H (2.6-4.0) g/dL Albumin/Globulin Ratio 0.7 L (0.9-1.6) SARS-CoV-2 RNA (BERONICA) (NEGATIVE) 06/15/21 06/15/21 06/15/21 Range/Units 12:35 12:35 12:35 WBC 11.73 H (4.0-11.0) K/uL RBC 3.44 L (4.50-5.90) M/uL Hgb 10.0 L (13.0-17.0) g/dL Hct 31.3 L (38.0-50.0) % MCV 91.0 (80.0-98.0) fL MCH 29.1 (27.0-32.0) pg MCHC 31.9 (31.0-37.0) g/dL RDW Std Deviation 73.2 H (28.0-62.0) fl RDW Coeff of Kwadwo 23 H (11.0-15.0) % Plt Count 328 (150-400) K/uL MPV 11.60 (7.40-12.00) fL Neut % (Auto) 72.0 (48.0-80.0) % Lymph % (Auto) 15.6 L (16.0-40.0) % [place] % (Auto) 12.1 (0.0-15.0) % Eos % (Auto) 0.1 (0.0-7.0) % Baso % (Auto) 0.2 (0.0-1.5) % Neut # (Auto) 8.5 H (1.4-5.7) K/uL Lymph # (Auto) 1.8 (0.6-2.4) K/uL [place] # (Auto) 1.4 H (0.0-0.8) K/uL Eos # (Auto) 0.0 (0.0-0.7) K/uL Baso # (Auto) 0.0 (0.0-0.1) K/uL Nucleated RBC % 0.0 /100WBC Nucleated RBCs # 0 K/uL INR Sodium (136-148) mmol/L Potassium (3.5-5.1) mmol/L Chloride (98-107) mmol/L Carbon Dioxide (21.0-32.0) mmol/L BUN (7.0-18.0) mg/dL Creatinine (0.8-1.3) mg/dL Est Cr Clr Drug Dosing mL/min Estimated GFR (MDRD) ml/min Glucose (74-106) mg/dL Lactic Acid 2.8 H* (0.4-2.0) mmol/L Calcium (8.5-10.1) mg/dL Phosphorus (2.6-4.7) mg/dL Magnesium (1.8-2.4) mg/dL Total Bilirubin (0.2-1.0) mg/dL AST (15-37) IU/L ALT (14-63) IU/L Alkaline Phosphatase (46-116) U/L Troponin I (0.000-0.056) ng/mL B-Natriuretic Peptide 775 H (<100) PG/ML Total Protein (6.4-8.2) g/dL Albumin (3.4-5.0) g/dL Globulin (2.6-4.0) g/dL Albumin/Globulin Ratio (0.9-1.6) SARS-CoV-2 RNA (BERONICA) (NEGATIVE) 06/15/21 Range/Units 14:50 WBC (4.0-11.0) K/uL RBC (4.50-5.90) M/uL Hgb (13.0-17.0) g/dL Hct (38.0-50.0) % MCV (80.0-98.0) fL MCH (27.0-32.0) pg MCHC (31.0-37.0) g/dL RDW Std Deviation (28.0-62.0) fl RDW Coeff of Kwadwo (11.0-15.0) % Plt Count (150-400) K/uL MPV (7.40-12.00) fL Neut % (Auto) (48.0-80.0) % Lymph % (Auto) (16.0-40.0) % [place] % (Auto) (0.0-15.0) % Eos % (Auto) (0.0-7.0) % Baso % (Auto) (0.0-1.5) % Neut # (Auto) (1.4-5.7) K/uL Lymph # (Auto) (0.6-2.4) K/uL [place] # (Auto) (0.0-0.8) K/uL Eos # (Auto) (0.0-0.7) K/uL Baso # (Auto) (0.0-0.1) K/uL Nucleated RBC % /100WBC Nucleated RBCs # K/uL INR Sodium (136-148) mmol/L Potassium (3.5-5.1) mmol/L Chloride (98-107) mmol/L Carbon Dioxide (21.0-32.0) mmol/L BUN (7.0-18.0) mg/dL Creatinine (0.8-1.3) mg/dL Est Cr Clr Drug Dosing mL/min Estimated GFR (MDRD) ml/min Glucose (74-106) mg/dL Lactic Acid (0.4-2.0) mmol/L Calcium (8.5-10.1) mg/dL Phosphorus (2.6-4.7) mg/dL Magnesium (1.8-2.4) mg/dL Total Bilirubin (0.2-1.0) mg/dL AST (15-37) IU/L ALT (14-63) IU/L Alkaline Phosphatase (46-116) U/L Troponin I (0.000-0.056) ng/mL B-Natriuretic Peptide (<100) PG/ML Total Protein (6.4-8.2) g/dL Albumin (3.4-5.0) g/dL Globulin (2.6-4.0) g/dL Albumin/Globulin Ratio (0.9-1.6) SARS-CoV-2 RNA (BERONICA) NEGATIVE (NEGATIVE) Result Diagrams: 06/15/21 12:35 06/15/21 12:28 Sepsis Event Note - Evaluation Sepsis Screening Result: No Definite Risk - Focused Exam Vital Signs: Vital Signs Temp Pulse Resp BP BP Pulse Ox 06/15/21 16:40 87 24 H 139/69 98 06/15/21 16:25 86 23 H 139/69 97 06/15/21 16:10 92 26 H 144/77 H 90 L 06/15/21 15:55 85 21 H 141/72 H 89 L 06/15/21 15:40 87 22 H 149/72 H 94 L 06/15/21 15:25 90 24 H 142/65 H 92 L 06/15/21 15:10 94 25 H 154/64 H 89 L 06/15/21 14:55 91 21 H 149/66 H 97 06/15/21 14:45 94 148/70 H 98 06/15/21 14:35 103 H 168/75 H 97 06/15/21 14:05 118 H 24 H 169/93 H 94 L 06/15/21 13:55 106 H 26 H 167/81 H 94 L 06/15/21 13:05 102 H 27 H 159/85 H 97 06/15/21 12:55 110 H 25 H 153/84 H 95 06/15/21 12:40 155/85 H 06/15/21 12:36 124 H 27 H 158/76 H 95 06/15/21 12:28 181/97 H 06/15/21 12:27 127 H 28 H 188/97 H 95 06/15/21 12:18 37.2 C 112 H 28 H 191/115 H 65 L - Problem List (1) Neuroendocrine carcinoma metastatic to multiple sites SNOMED Code(s): 692441659 ICD Code: C7A.8 - OTHER MALIGNANT NEUROENDOCRINE TUMORS; C7B.8 - OTHER SECONDARY NEUROENDOCRINE TUMORS Status: Acute Current Visit: Yes (2) Acute pulmonary edema SNOMED Code(s): 50232600 ICD Code: J81.0 - ACUTE PULMONARY EDEMA Status: Acute Current Visit: No (3) Respiratory failure SNOMED Code(s): 608880409 ICD Code: J96.90 - RESPIRATORY FAILURE, UNSP, UNSP W HYPOXIA OR HYPERCAPNIA Status: Acute Current Visit: No Qualifiers: Chronicity: acute Respiratory failure complication: hypoxia and hypercapnia Qualified Code(s): J96.01 - Acute respiratory failure with hypoxia; J96.02 - Acute respiratory failure with hypercapnia Problem List Initiated/Reviewed/Updated: Yes Orders Last 24hrs: Active Orders 24 hr Category Date Time Status Admission Status [Patient Status] [ADT] Stat ADT 06/15/21 14:47 Active Ambulate [RC] ASDIRECTED Care 06/15/21 16:11 Active Cardiac Monitoring [RC] . DIRECTED Care 06/15/21 12:24 Active Cardiac Monitoring [RC] . DIRECTED Care 06/15/21 14:47 Active Insert Oh Catheter [Insert Urinary Catheter] [OM.PC] Care 06/15/21 16:30 Ordered Q24H Oxygen Therapy [RC] PRN Care 06/15/21 16:12 Active RASS Sedation Scale [RC] ASDIRECTED Care 06/15/21 12:30 Active RT Aerosol Therapy [RC] ASDIRECTED Care 06/15/21 16:14 Active Urinary Catheter Assessment [RC] ASDIRECTED Care 06/15/21 16:20 Active VTE/DVT Education [RC] PER UNIT ROUTINE Care 06/15/21 16:12 Active Vital Signs [RC] Q1H Care 06/15/21 16:12 Active Fluid Restriction [DIET] Diet 06/16/21 Breakfast Active Heart Healthy Diet [DIET] Diet 06/15/21 Dinner Active CBC WITH AUTO DIFF [HEME] AM Lab 06/16/21 05:11 Ordered CMP [COMPREHENSIVE METABOLIC PN,CMP] [CHEM] AM Lab 06/16/21 05:11 Ordered CULTURE BLOOD [BC] Stat Lab 06/15/21 12:32 Received CULTURE BLOOD [BC] Stat Lab 06/15/21 12:35 Received LACTIC ACID [CHEM] Routine Lab 06/15/21 17:26 Ordered MAGNESIUM [CHEM] AM Lab 06/16/21 05:11 Ordered PHOSPHORUS [CHEM] AM Lab 06/16/21 05:11 Ordered UA RFX SRIKANTH AND CULT IF INDIC [URIN] Stat Lab 06/15/21 17:55 Received VANCOMYCIN TROUGH [CHEM] Timed Lab 06/17/21 08:30 Ordered Acetaminophen [TylenoL] Med 06/15/21 16:11 Active 650 mg PO Q4H PRN Albuterol/Ipratropium [DuoNeb 3.0-0.5 MG/3 ML] Med 06/15/21 16:11 Active 3 ml NEB Q4HRRT PRN Aspirin Med 06/16/21 09:00 Ordered 325 mg PO DAILY Fluticasone Propionate Med 06/15/21 18:07 Ordered 1 spray NASBOTH DAILY PRN Furosemide [Lasix] Med 06/16/21 09:00 Active 40 mg IVPUSH BID Heparin Sodium Med 06/15/21 16:15 Active 5,000 units SUBCUT Q8H Magnesium Sulfate/Water [Magnesium Sulfate in Water 2 Med 06/15/21 18:05 Ordered GM/50 ML] 2 gm Premix Bag 1 bag IV ONETIME Metoprolol Succinate [Toprol XL] Med 06/16/21 09:00 Ordered 50 mg PO DAILY Nitroglycerin/D5W [Nitroglycerin 25 MG/D5W 250 ML] Med 06/15/21 15:45 Active 25 mg in 250 ml IV TITRATE Ondansetron [Zofran] Med 06/15/21 16:11 Active 4 mg IVPUSH Q4H PRN Pantoprazole [ProTONIX IV] 40 mg Med 06/16/21 09:00 Active Sodium Chloride 0.9% [Normal Saline] 10 ml IV DAILY Pharmacy to Dose - Vancomycin Med 06/15/21 16:30 Active 1 dose .XX ASDIRECTED Piperacillin/Tazobactam [Piperacil-Tazobact] 3.375 gm Med 06/15/21 20:00 Active Sodium Chloride 0.9% [Normal Saline] 50 ml IV Q6H Sodium Chloride 0.9% [Saline Flush] Med 06/15/21 12:24 Active 10 ml FLUSH ASDIRECTED PRN Sodium Chloride 0.9% [Saline Flush] Med 06/15/21 12:24 Active 2.5 ml FLUSH ASDIRECTED PRN VANCOmycin 1.5 GM/300 ML 300 ml Med 06/15/21 21:00 Active IV Q12H atorvaSTATin [Lipitor] Med 06/16/21 09:00 Ordered 10 mg PO DAILY Blood Culture x2 Reflex Set [OM.PC] Stat Oth 06/15/21 12:27 Ordered Desired Level of Sedation (RASS) [AST] Click to Edit Oth 06/15/21 12:30 Ordered Saline Lock Insert [OM.PC] Stat Oth 06/15/21 12:24 Ordered Resuscitation Status Routine Resus Stat 06/15/21 16:11 Ordered Medication Orders Acetaminophen (Acetaminophen 325 Mg Tab) 650 mg PO Q4H PRN PRN Reason: Pain (Mild 1-3)/fever Albuterol/Ipratropium (Albuterol/Ipratropium 3.0-0.5 Mg/3 Ml Neb Soln) 3 ml NEB Q4HRRT PRN PRN Reason: Shortness Of Breath/wheezing Aspirin (Aspirin 325 Mg Tab) 325 mg PO DAILY [facility] Atorvastatin Calcium (Atorvastatin 10 Mg Tab) 10 mg PO DAILY [facility] Furosemide (Furosemide 40 Mg/4 Ml Vial) 40 mg IVPUSH BID [facility] Heparin Sodium (Porcine) (Heparin Sodium 5,000 Units/Ml Vial) 5,000 units SUBCUT Q8H [facility] Nitroglycerin/Dextrose (Nitroglycerin 25 Mg/D5w 250 Ml) 25 mg in 250 mls @ 18 mls/hr IV TITRATE [facility]; Protocol Last Admin: 06/15/21 15:45 Dose: 30 mcg/min, 18 mls/hr Documented by: SUMAN Pantoprazole Sodium 40 mg/ (Sodium Chloride) 10 mls @ 300 mls/hr IV DAILY [facility] Piperacillin Sod/Tazobactam (Sod 3.375 gm/ Sodium Chloride) 50 mls @ 100 mls/hr IV Q6H [facility] Vancomycin HCl (Vancomycin 1.5 Gm/300 Ml) 300 mls @ 200 mls/hr IV Q12H [facility] Magnesium Sulfate 2 gm/ Premix 50 mls @ 12.5 mls/hr IV ONETIME ONE Stop: 06/15/21 22:04 Metoprolol Succinate (Metoprolol Succinate 50 Mg Tab.Er) 50 mg PO DAILY [facility] Non-Formulary Medication (Fluticasone Propionate) 1 spray NASBOTH DAILY PRN PRN Reason: Allergies Ondansetron HCl (Ondansetron 4 Mg/2 Ml Sdv) 4 mg IVPUSH Q4H PRN PRN Reason: Nausea/Vomiting Sodium Chloride (Sodium Chloride 0.9% 10 Ml Syringe) 10 ml FLUSH ASDIRECTED PRN PRN Reason: Keep Vein Open Last Admin: 06/15/21 14:05 Dose: 10 ml Documented by: SUMAN Sodium Chloride (Sodium Chloride 0.9% 2.5 Ml Syringe) 2.5 ml FLUSH ASDIRECTED PRN PRN Reason: Keep Vein Open Last Admin: 06/15/21 14:05 Dose: 2.5 ml Documented by: SUMAN Vancomycin HCl (Pharmacy To Dose - Vancomycin) 1 dose .XX ASDIRECTED [facility] Assessment/Plan Comment:: 66 y/o M admitted for acute hypoxic respiratory failure, due to flash pulmonary edema with possible PNA cont oxygenation via high flow,, wean as able IV lasix, monitor and replete electrolytes cont IV antibiotics for now Patient has elevated lactate but IS NOT SEPTIC, possibly from hypoxia DuoNebs as needed Novovlg insulin, basal insulin Accu checks TIDAC Resume antihypertensives, wean off the nitro gtt as able.
--- NOTE | 2021-06-15 18:48 | PN ---
THC Physician - Brief Progress [id number]/19/2021 18:37[facility] Hali Casiano, JARRET - DANNY (NATE) - DANNY Britney LLOYD of Service 06/15/2021 18:37HPI/Events of Note eICU admission [id number] male currently admitted to the ICU for acute hypoxic respiratory failure. Patient presented to hospital with complaint of shortness of breath without any further as sociated symptoms. Patient mentions he was receiving chemotherapy after which he became acutely shor t of breath but was doing fine prior to this event. On arrival to the ED patient was noted to be tac hypneic and hypertensive. Initial lab work-up did reveal leukocytosis 11.73 and lactate 2.8 along wi th BNP 775. Patient was initiated on Lasix but given immunocompromise state he was also initiated on vancomycin/Zosyn. Patient was placed on noninvasive therapy and subsequently transitioned to heated high flow nasal cannula with admission to the ICU for further management.Patient seen on camera curr ently sitting up in chair eating food and does not appear to be in acute distress at this timeVital s igns reviewedLabs/EMR reviewedAcute hypoxic respiratory failure-Likely related to volume overload sta te in the setting of IV fluids with chemotherapy-Agree with empiric antibiotic coverage given immunoc ompromise state; will recommend continuing until cultures come back negative. If patient does develo p further sirs recommend broadening with azithromycin-Recommend obtaining COVID-19 PCR if also high s uspicion per primary team. PPE and isolation per institution policy-Recommend obtaining respiratory culture, urine Legionella/strep-Recommend repleting magnesium greater than 2-Agree with diuresis as b lood pressure tolerates can consider net negative goal of 1-1.5 L x 24 hours; continue with strict I' s and O's and daily weights-If no recent 2D echo has been done recommend obtaining with this Gena viramontes you for allowing us to participate in the care of this patient. Please do not hesitate to contact e ICU for any questions, clarification or assistance with implementation of above.Interventions Major-H ypoxemia - evaluation and management, Infection - evaluation and management, Respiratory failure - ev aluation and management
[2021-06-15] MEDS: Piperacillin/Tazobactam 3.375 GM in Sodium Chloride 0.9% 50 ML IV SCH (20:07)
[2021-06-15] MEDS ORDERED: Glucagon,Human Recombinant 1 MG Vial IM PRN ×2 (20:24→21:25)
[2021-06-15] MEDS ORDERED: 50% Dextrose in Water 50 ML Syringe IVPUSH PRN ×2 (20:24→21:25)
[2021-06-15] MEDS ORDERED: VANCOmycin 1.5 GM/300 ML 300 ML IV SCH (21:00)
[2021-06-15] MEDS: Insulin Aspart 100 Units/ML 3 ML Pen SUBCUT SCH ×3 (21:27→21:29)
[2021-06-15] MEDS: Metoprolol Succinate 50 MG Tab.ER PO SCH (21:27)
[2021-06-15] MEDS ORDERED: Insulin Detemir 100 Units/ML 3 ML Pen SUBCUT SCH (21:55)
[2021-06-15] MEDS ORDERED: Acetaminophen/HYDROcodone 325-10 MG Tab PO PRN (22:59)
[2021-06-16] MEDS ORDERED: VANCOmycin 1.5 GM/300 ML 300 ML IV SCH (02:00)
[2021-06-16] MEDS: Piperacillin/Tazobactam 3.375 GM in Sodium Chloride 0.9% 50 ML IV SCH ×2 (02:59→08:12)
[2021-06-16] MEDS: Heparin Sodium 5,000 Units/ML Vial SUBCUT SCH ×3 (03:11→12:21)
[2021-06-16 06:27] LABS: BLOOD UREA NITROGEN,BUN 22 mg/dL (7.0-18.0); CARBON DIOXIDE,CO2 27.9 mmol/L (21.0-32.0); CHLORIDE,CL 100 mmol/L (98-107); GLUCOSE RANDOM 145 mg/dL (74-106); POTASSIUM,K 3.8 mmol/L (3.5-5.1); SODIUM,NA 136 mmol/L (136-148)
[2021-06-16] MEDS: Insulin Aspart 100 Units/ML 3 ML Pen SUBCUT SCH ×2 (06:35→12:21)
[2021-06-16] MEDS: Metoprolol Succinate 50 MG Tab.ER PO SCH (08:53)
[2021-06-16 08:55] VITALS: PULSE 73
[2021-06-16] MEDS ORDERED: atorvaSTATin 10 MG Tab PO SCH (09:00)
[2021-06-16] MEDS ORDERED: Pantoprazole 40 MG in Sodium Chloride 0.9% 10 ML IV SCH (09:00)
[2021-06-16] MEDS ORDERED: Aspirin 325 MG Tab PO SCH (09:00)
[2021-06-16] MEDS ORDERED: Metoprolol Succinate 50 MG Tab.ER PO SCH (09:00)
[2021-06-16] MEDS ORDERED: Furosemide 40 MG/4 ML VIAL IVPUSH SCH (09:00)
[2021-06-16 10:12] VITALS: BP 122/60
[2021-06-16] MEDS ORDERED: traZODone 50 MG Tab PO PRN (11:04)
[2021-06-16] MEDS ORDERED: Levofloxacin 750 MG Tab PO SCH (12:00)
--- NOTE | 2021-06-16 13:43 | PCM.DCSUM1 ---
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 He tolerated the infusion initially but by the end he became acutely dyspneic. He was diaphoretic and pale. In the ER he was tachypneic only able to speak short sentences. Denied chest pain. Noted to have lower extremity pitting edema which was chronic for him. Patient stated he had a reaction like this in the past after chemo last month when he went into flash pulmonary edema and was intubated and transferred to [place]. In the ER, CXR showed pulmonary edema versus infiltrates. CT angio ruled out PE. CBC significant for leukocytosis. BNP was 775. Lactic acid was 2.8. Tropes negative. EKG showed no acute ischemic changes. Patient was on the verge of intubation but was managed with BiPAP which he ended up doing well on. He made a quick turnaround and was weaned down to nasal cannula. He was treated with vancomycin and Zosyn for infiltrates on CXR. Transition to oral levofloxacin. Patient will be discharged with 5 days of levofloxacin 750 mg daily. Patient was given IV Lasix and diuresed. He was started on nitro drip due to high blood pressures. Patient is adamant about being discharged today as he wants to spend time with his friends and family due to his prognosis. We did recommend physical therapy and at least 1 more night but he refused. Patient is hemodynamically stable and will be sent home on levofloxacin. On ambulatory oxygen evaluation patient required 1.5 L with ambulation only. Patient will be discharged on 1 month of oxygen with activity only. - Discharge Data Discharge Date: 06/16/21 Discharge Disposition: Home, Self-Care 01 Condition: Stable - Referral to Home Health Primary Care Physician: PREETHI Ferrara - Patient Summary/Data Consults: Consultations 06/16/21 11:45 Consult to Occupational Therapy [OT Evaluation and Treatment] [CONS] Routine - Patient Instructions Diet: Usual Diet as Tolerated Activity: As Tolerated Notify Provider of: Fever, Increased Pain Other/Special Instructions: You are treated in the hospital for acute pulmonary edema which is fluid in your lungs causing respiratory failure. On your walking oxygen evaluation, you required 1.5 L of oxygen with activity only. You will be discharged with oxygen for 1 month to be used with activity. Please use 1.5 L/min with activity. You were treated with IV antibiotics for infection. You will be discharged on antibiotic levofloxacin 750 mg daily for 5 days. If you experience shortness of breath, difficulty breathing when laying flat, palpitations, chest pain, dizziness, lightheadedness, please seek medical attention immediately. Please speak with your oncologist regarding the reaction you had to the chemotherapy. - Discharge Plan *PRESCRIPTION DRUG MONITORING PROGRAM REVIEWED*: Not Applicable *COPY OF PRESCRIPTION DRUG MONITORING REPORT IN PATIENT LAILA: Not Applicable Prescriptions/Med Rec: levoFLOXacin [Levaquin] 750 mg PO Q24H 5 Days #5 tablet Home Medications: Home Meds Aspirin 325 mg PO DAILY 02/16/21 [History] Furosemide 60 mg PO DAILY 02/16/21 [History] Insulin Degludec [Tresiba] 10 unit SQ BEDTIME 02/16/21 [History] Lansoprazole [Prevacid] 30 mg PO DAILY PRN 02/16/21 [History] Metoprolol Succinate 50 mg PO DAILY 02/16/21 [History] Potassium Chloride 20 meq PO DAILY 02/16/21 [History] atorvaSTATin [Lipitor] 10 mg PO DAILY 02/16/21 [History] Fluticasone Propionate [Flonase Allergy Relief] 1 spray NASBOTH DAILY PRN 03/20/21 [History] Insulin Aspart [NovoLOG] 1 injection SUBCUT ASDIRECTED 03/20/21 [History] Hydrocodone/Acetaminophen [Vicodin Hp 10-300 mg Tablet] 1 each PO Q6H PRN #6 tablet 03/22/21 [Rx] traZODone 100 mg PO BEDTIME 06/15/21 [History] levoFLOXacin [Levaquin] 750 mg PO Q24H 5 Days #5 tablet 06/16/21 [Rx] Oxygen Therapy Mode: Nasal Cannula (1.5L Nasal Cannula with activity.) Oxygen Flow Rate (L/min): 1.5 Patient Handouts: Pulmonary Edema, [id number] Referrals: Lilliam Way MD [Ordering Only Provider] - (Please follow your scheduled appointment.) Kristina Hansen PA [Primary Care Provider] - (Please follow your scheduled appointment.) - Discharge Summary/Plan Comment DC Time >30 min.: Yes Total # of Minutes for Discharge Time: 45 - General Info Admission Dx/Problem (Free Text: Admission Diagnosis/Problem Admission Diagnosis/Problem CHF, Congestive heart failure - Review of Systems General: Denies: Fever, Chills Pulmonary: Denies: Pleuritic Chest Pain, Cough Cardiovascular: Reports: Edema. Denies: Chest Pain, Palpitations Gastrointestinal: Denies: Abdominal Pain, Constipation, Diarrhea, Nausea, Vomiting Genitourinary: Reports: No Symptoms Musculoskeletal: Reports: Other (Lower extremity lymphedema) Neurological: Reports: No Symptoms - Patient Data Vitals - Most Recent: Last Vital Signs Temp 97.3 F 06/16/21 08:00 Pulse 73 06/16/21 08:53 Resp 17 06/16/21 11:00 BP 122/60 06/16/21 10:00 Pulse Ox 91 L 06/16/21 11:00 Weight - Most Recent: 196 lb 3 oz I&O - Last 24 hours: Intake & Output 06/15/21 06/16/21 06/16/21 22:59 06:59 14:59 Intake Total 50 1000 Output Total 2050 Balance 50 -1050 Lab Results - Last 24 hrs: Laboratory Results - last 24 hr 06/15/21 06/15/21 06/15/21 Range/Units 12:28 14:50 17:39 WBC (4.0-11.0) K/uL RBC (4.50-5.90) M/uL Hgb (13.0-17.0) g/dL Hct (38.0-50.0) % MCV (80.0-98.0) fL MCH (27.0-32.0) pg MCHC (31.0-37.0) g/dL RDW Std Deviation (28.0-62.0) fl RDW Coeff of Kwadwo (11.0-15.0) % Plt Count (150-400) K/uL MPV (7.40-12.00) fL Neut % (Auto) (48.0-80.0) % Lymph % (Auto) (16.0-40.0) % Baker % (Auto) (0.0-15.0) % Eos % (Auto) (0.0-7.0) % Baso % (Auto) (0.0-1.5) % Neut # (Auto) (1.4-5.7) K/uL Lymph # (Auto) (0.6-2.4) K/uL Baker # (Auto) (0.0-0.8) K/uL Eos # (Auto) (0.0-0.7) K/uL Baso # (Auto) (0.0-0.1) K/uL Nucleated RBC % /100WBC Nucleated RBCs # K/uL Sodium (136-148) mmol/L Potassium (3.5-5.1) mmol/L Chloride (98-107) mmol/L Carbon Dioxide (21.0-32.0) mmol/L BUN (7.0-18.0) mg/dL Creatinine (0.8-1.3) mg/dL Est Cr Clr Drug Dosing mL/min Estimated GFR (MDRD) ml/min Glucose (74-106) mg/dL POC Glucose (70-99) mg/dL Lactic Acid 2.8 H* (0.4-2.0) mmol/L Calcium (8.5-10.1) mg/dL Phosphorus 4.3 (2.6-4.7) mg/dL Magnesium 1.6 L (1.8-2.4) mg/dL Total Bilirubin (0.2-1.0) mg/dL AST (15-37) IU/L ALT (14-63) IU/L Alkaline Phosphatase (46-116) U/L Total Protein (6.4-8.2) g/dL Albumin (3.4-5.0) g/dL Globulin (2.6-4.0) g/dL Albumin/Globulin Ratio (0.9-1.6) Urine Color Urine Appearance Urine pH (5.0-8.0) Ur Specific [place] (1.001-1.035) Urine Protein (NEGATIVE) mg/dL Urine Glucose (UA) (NEGATIVE) mg/dL Urine Ketones (NEGATIVE) mg/dL Urine Occult Blood (NEGATIVE) Urine Nitrite (NEGATIVE) Urine Bilirubin (NEGATIVE) Urine Urobilinogen (<2.0) EU/dL Ur Leukocyte Esterase (NEGATIVE) SARS-CoV-2 RNA (BERONICA) NEGATIVE (NEGATIVE) 06/15/21 06/15/21 06/16/21 Range/Units 17:55 20:54 01:38 WBC (4.0-11.0) K/uL RBC (4.50-5.90) M/uL Hgb (13.0-17.0) g/dL Hct (38.0-50.0) % MCV (80.0-98.0) fL MCH (27.0-32.0) pg MCHC (31.0-37.0) g/dL RDW Std Deviation (28.0-62.0) fl RDW Coeff of Kwadwo (11.0-15.0) % Plt Count (150-400) K/uL MPV (7.40-12.00) fL Neut % (Auto) (48.0-80.0) % Lymph % (Auto) (16.0-40.0) % Baker % (Auto) (0.0-15.0) % Eos % (Auto) (0.0-7.0) % Baso % (Auto) (0.0-1.5) % Neut # (Auto) (1.4-5.7) K/uL Lymph # (Auto) (0.6-2.4) K/uL Baker # (Auto) (0.0-0.8) K/uL Eos # (Auto) (0.0-0.7) K/uL Baso # (Auto) (0.0-0.1) K/uL Nucleated RBC % /100WBC Nucleated RBCs # K/uL Sodium (136-148) mmol/L Potassium (3.5-5.1) mmol/L Chloride (98-107) mmol/L Carbon Dioxide (21.0-32.0) mmol/L BUN (7.0-18.0) mg/dL Creatinine (0.8-1.3) mg/dL Est Cr Clr Drug Dosing mL/min Estimated GFR (MDRD) ml/min Glucose (74-106) mg/dL POC Glucose 295 H 198 H (70-99) mg/dL Lactic Acid (0.4-2.0) mmol/L Calcium (8.5-10.1) mg/dL Phosphorus (2.6-4.7) mg/dL Magnesium (1.8-2.4) mg/dL Total Bilirubin (0.2-1.0) mg/dL AST (15-37) IU/L ALT (14-63) IU/L Alkaline Phosphatase (46-116) U/L Total Protein (6.4-8.2) g/dL Albumin (3.4-5.0) g/dL Globulin (2.6-4.0) g/dL Albumin/Globulin Ratio (0.9-1.6) Urine Color YELLOW Urine Appearance CLEAR Urine pH 6.0 (5.0-8.0) Ur Specific [place] 1.010 (1.001-1.035) Urine Protein NEGATIVE (NEGATIVE) mg/dL Urine Glucose (UA) NEGATIVE (NEGATIVE) mg/dL Urine Ketones NEGATIVE (NEGATIVE) mg/dL Urine Occult Blood NEGATIVE (NEGATIVE) Urine Nitrite NEGATIVE (NEGATIVE) Urine Bilirubin NEGATIVE (NEGATIVE) Urine Urobilinogen 0.2 (<2.0) EU/dL Ur Leukocyte Esterase NEGATIVE (NEGATIVE) SARS-CoV-2 RNA (BERONICA) (NEGATIVE) 06/16/21 06/16/21 06/16/21 Range/Units 05:45 05:45 05:45 WBC 9.16 (4.0-11.0) K/uL RBC 3.12 L (4.50-5.90) M/uL Hgb 9.0 L (13.0-17.0) g/dL Hct 28.1 L (38.0-50.0) % MCV 90.1 (80.0-98.0) fL MCH 28.8 (27.0-32.0) pg MCHC 32.0 (31.0-37.0) g/dL RDW Std Deviation 72.9 H (28.0-62.0) fl RDW Coeff of Kwadwo 23 H (11.0-15.0) % Plt Count 245 (150-400) K/uL MPV 11.60 (7.40-12.00) fL Neut % (Auto) 84.7 H (48.0-80.0) % Lymph % (Auto) 7.1 L (16.0-40.0) % Baker % (Auto) 8.2 (0.0-15.0) % Eos % (Auto) 0.0 (0.0-7.0) % Baso % (Auto) 0.0 (0.0-1.5) % Neut # (Auto) 7.8 H (1.4-5.7) K/uL Lymph # (Auto) 0.7 (0.6-2.4) K/uL Baker # (Auto) 0.8 (0.0-0.8) K/uL Eos # (Auto) 0.0 (0.0-0.7) K/uL Baso # (Auto) 0.0 (0.0-0.1) K/uL Nucleated RBC % 0.0 /100WBC Nucleated RBCs # 0 K/uL Sodium 136 (136-148) mmol/L Potassium 3.8 (3.5-5.1) mmol/L Chloride 100 (98-107) mmol/L Carbon Dioxide 27.9 (21.0-32.0) mmol/L BUN 22 H (7.0-18.0) mg/dL Creatinine 0.9 (0.8-1.3) mg/dL Est Cr Clr Drug Dosing 88.74 mL/min Estimated GFR (MDRD) > 60.0 ml/min Glucose 145 H (74-106) mg/dL POC Glucose (70-99) mg/dL Lactic Acid 1.3 (0.4-2.0) mmol/L Calcium 8.6 (8.5-10.1) mg/dL Phosphorus 4.7 (2.6-4.7) mg/dL Magnesium 1.9 (1.8-2.4) mg/dL Total Bilirubin 0.4 (0.2-1.0) mg/dL AST 17 (15-37) IU/L ALT 21 (14-63) IU/L Alkaline Phosphatase 93 (46-116) U/L Total Protein 6.9 (6.4-8.2) g/dL Albumin 3.0 L (3.4-5.0) g/dL Globulin 3.9 (2.6-4.0) g/dL Albumin/Globulin Ratio 0.8 L (0.9-1.6) Urine Color Urine Appearance Urine pH (5.0-8.0) Ur Specific [place] (1.001-1.035) Urine Protein (NEGATIVE) mg/dL Urine Glucose (UA) (NEGATIVE) mg/dL Urine Ketones (NEGATIVE) mg/dL Urine Occult Blood (NEGATIVE) Urine Nitrite (NEGATIVE) Urine Bilirubin (NEGATIVE) Urine Urobilinogen (<2.0) EU/dL Ur Leukocyte Esterase (NEGATIVE) SARS-CoV-2 RNA (BERONICA) (NEGATIVE) 06/16/21 06/16/21 Range/Units 06:22 11:25 WBC (4.0-11.0) K/uL RBC (4.50-5.90) M/uL Hgb (13.0-17.0) g/dL Hct (38.0-50.0) % MCV (80.0-98.0) fL MCH (27.0-32.0) pg MCHC (31.0-37.0) g/dL RDW Std Deviation (28.0-62.0) fl RDW Coeff of Kwadwo (11.0-15.0) % Plt Count (150-400) K/uL MPV (7.40-12.00) fL Neut % (Auto) (48.0-80.0) % Lymph % (Auto) (16.0-40.0) % Baker % (Auto) (0.0-15.0) % Eos % (Auto) (0.0-7.0) % Baso % (Auto) (0.0-1.5) % Neut # (Auto) (1.4-5.7) K/uL Lymph # (Auto) (0.6-2.4) K/uL Baker # (Auto) (0.0-0.8) K/uL Eos # (Auto) (0.0-0.7) K/uL Baso # (Auto) (0.0-0.1) K/uL Nucleated RBC % /100WBC Nucleated RBCs # K/uL Sodium (136-148) mmol/L Potassium (3.5-5.1) mmol/L Chloride (98-107) mmol/L Carbon Dioxide (21.0-32.0) mmol/L BUN (7.0-18.0) mg/dL Creatinine (0.8-1.3) mg/dL Est Cr Clr Drug Dosing mL/min Estimated GFR (MDRD) ml/min Glucose (74-106) mg/dL POC Glucose 139 H 206 H (70-99) mg/dL Lactic Acid (0.4-2.0) mmol/L Calcium (8.5-10.1) mg/dL Phosphorus (2.6-4.7) mg/dL Magnesium (1.8-2.4) mg/dL Total Bilirubin (0.2-1.0) mg/dL AST (15-37) IU/L ALT (14-63) IU/L Alkaline Phosphatase (46-116) U/L Total Protein (6.4-8.2) g/dL Albumin (3.4-5.0) g/dL Globulin (2.6-4.0) g/dL Albumin/Globulin Ratio (0.9-1.6) Urine Color Urine Appearance Urine pH (5.0-8.0) Ur Specific [place] (1.001-1.035) Urine Protein (NEGATIVE) mg/dL Urine Glucose (UA) (NEGATIVE) mg/dL Urine Ketones (NEGATIVE) mg/dL Urine Occult Blood (NEGATIVE) Urine Nitrite (NEGATIVE) Urine Bilirubin (NEGATIVE) Urine Urobilinogen (<2.0) EU/dL Ur Leukocyte Esterase (NEGATIVE) SARS-CoV-2 RNA (BERONICA) (NEGATIVE) SRIKANTH Results - Last 24 hrs: Microbiology 06/15/21 12:35 Aerobic Blood Culture - Preliminary Blood - Venous - Lab Draw NO GROWTH AFTER 1 DAY Anaerobic Blood Culture - Preliminary NO GROWTH AFTER 1 DAY 06/15/21 12:32 Aerobic Blood Culture - Preliminary Blood - Venous NO GROWTH AFTER 1 DAY Anaerobic Blood Culture - Preliminary NO GROWTH AFTER 1 DAY Med Orders - Current: Current Medications Acetaminophen (Acetaminophen 325 Mg Tab) 650 mg PO Q4H PRN PRN Reason: Pain (Mild 1-3)/fever Hydrocodone Bitart/Acetaminophen (Acetaminophen/Hydrocodone 325-10 Mg Tab) 1 tab PO Q6H PRN PRN Reason: Pain Albuterol/Ipratropium (Albuterol/Ipratropium 3.0-0.5 Mg/3 Ml Neb Soln) 3 ml NEB Q4HRRT PRN PRN Reason: Shortness Of Breath/wheezing Aspirin (Aspirin 325 Mg Tab) 325 mg PO DAILY [facility] Last Admin: 06/16/21 09:53 Dose: Not Given Documented by: Atorvastatin Calcium (Atorvastatin 10 Mg Tab) 10 mg PO DAILY [facility] Last Admin: 06/16/21 08:53 Dose: 10 mg Documented by: Dextrose/Water (50% Dextrose In Water 50 Ml Syringe) 50 ml IVPUSH ASDIRECTED PRN PRN Reason: Hypoglycemia Fluticasone Propionate (Fluticasone Propionate Nasal [place] 16 Gm Bottle) 0 gm NASBOTH DAILY PRN PRN Reason: Allergies Furosemide (Furosemide 40 Mg/4 Ml Vial) 40 mg IVPUSH BID [facility] Last Admin: 06/16/21 08:54 Dose: 40 mg Documented by: Glucagon (Glucagon,Human Recombinant 1 Mg Vial) 1 mg IM ASDIRECTED PRN PRN Reason: Hypoglycemia Heparin Sodium (Porcine) (Heparin Sodium 5,000 Units/Ml Vial) 5,000 units SUBCUT Q8H [facility] Last Admin: 06/16/21 12:21 Dose: Not Given Documented by: Nitroglycerin/Dextrose (Nitroglycerin 25 Mg/D5w 250 Ml) 25 mg in 250 mls @ 18 mls/hr IV TITRATE [facility]; Protocol Last Titration: 06/15/21 20:08 Dose: 0 mcg/min, 0 mls/hr Documented by: Pantoprazole Sodium 40 mg/ (Sodium Chloride) 10 mls @ 300 mls/hr IV DAILY [facility] Last Admin: 06/16/21 08:12 Dose: 300 mls/hr Documented by: Insulin Aspart (Insulin Aspart 100 Units/Ml 3 Ml Pen) 0 unit SUBCUT TIDAC [facility]; Protocol Last Admin: 06/16/21 12:21 Dose: 2 units Documented by: Insulin Detemir (Insulin Detemir 100 Units/Ml 3 Ml Pen) 7 unit SUBCUT BEDTIME [facility] Last Admin: 06/15/21 21:59 Dose: 7 units Documented by: Levofloxacin (Levofloxacin 750 Mg Tab) 750 mg PO Q24H [facility] Last Admin: 06/16/21 12:21 Dose: 750 mg Documented by: Metoprolol Succinate (Metoprolol Succinate 50 Mg Tab.Er) 50 mg PO DAILY [facility] Last Admin: 06/16/21 08:53 Dose: 50 mg Documented by: Ondansetron HCl (Ondansetron 4 Mg/2 Ml Sdv) 4 mg IVPUSH Q4H PRN PRN Reason: Nausea/Vomiting Sodium Chloride (Sodium Chloride 0.9% 10 Ml Syringe) 10 ml FLUSH ASDIRECTED PRN PRN Reason: Keep Vein Open Last Admin: 06/15/21 14:05 Dose: 10 ml Documented by: Sodium Chloride (Sodium Chloride 0.9% 2.5 Ml Syringe) 2.5 ml FLUSH ASDIRECTED PRN PRN Reason: Keep Vein Open Last Admin: 06/15/21 14:05 Dose: 2.5 ml Documented by: Trazodone HCl (Trazodone 50 Mg Tab) 100 mg PO BEDTIME PRN PRN Reason: Insomnia Discontinued Medications Etomidate (Etomidate 2 Mg/Ml 20 Ml Sdv) 20 mg IVPUSH ONETIME ONE Stop: 06/15/21 12:23 Last Admin: 06/15/21 14:47 Dose: Not Given Documented by: Furosemide (Furosemide 40 Mg/4 Ml Vial) 80 mg IVPUSH NOW ONE Stop: 06/15/21 12:29 Last Admin: 06/15/21 12:35 Dose: 80 mg Documented by: Furosemide (Furosemide 40 Mg/4 Ml Vial) Confirm Administered Dose 80 mg .ROUTE .STK-MED ONE Stop: 06/15/21 12:30 Last Admin: 06/15/21 14:47 Dose: Not Given Documented by: Furosemide (Furosemide 40 Mg/4 Ml Vial) 20 mg IVPUSH NOW ONE Stop: 06/15/21 19:00 Last Admin: 06/15/21 20:06 Dose: 20 mg Documented by: Heparin Sodium (Porcine) (Heparin Sodium 5,000 Units/Ml Vial) 5,000 units SUBCUT Q8H [facility] Last Admin: 06/15/21 20:06 Dose: 5,000 units Documented by: Sodium Chloride (Normal Saline) 1,000 mls @ 999 mls/hr IV STAT ONE Stop: 06/15/21 13:24 Last Admin: 06/15/21 14:06 Dose: 999 mls/hr Documented by: Piperacillin Sod/Tazobactam (Sod 3.375 gm/ Sodium Chloride) 50 mls @ 100 mls/hr IV ONETIME ONE Stop: 06/15/21 12:57 Last Admin: 06/15/21 14:03 Dose: 100 mls/hr Documented by: Vancomycin HCl 1 gm/ Sodium (Chloride) 250 mls @ 166 mls/hr IV ONETIME ONE Stop: 06/15/21 13:58 Last Admin: 06/15/21 14:03 Dose: 166 mls/hr Documented by: Propofol (Diprivan 100 Ml) 100 mls @ 3 mls/hr IV TITRATE [facility]; Protocol Nitroglycerin/Dextrose (Nitroglycerin 25 Mg/D5w 250 Ml) Confirm Administered Dose 25 mg in 250 mls @ as directed .ROUTE .STK-MED ONE Stop: 06/15/21 12:31 Last Admin: 06/15/21 14:47 Dose: Not Given Documented by: Piperacillin Sod/Tazobactam (Sod 3.375 gm/ Sodium Chloride) 50 mls @ 100 mls/hr IV Q6H [facility] Last Admin: 06/16/21 08:12 Dose: 100 mls/hr Documented by: Vancomycin HCl (Vancomycin 1.5 Gm/300 Ml) 300 mls @ 200 mls/hr IV Q12H [facility] Magnesium Sulfate 2 gm/ Premix 50 mls @ 12.5 mls/hr IV ONETIME ONE Stop: 06/15/21 22:04 Last Admin: 06/15/21 18:52 Dose: 12.5 mls/hr Documented by: Vancomycin HCl (Vancomycin 1.5 Gm/300 Ml) 300 mls @ 200 mls/hr IV Q12H [facility] Last Admin: 06/16/21 01:26 Dose: 200 mls/hr Documented by: Insulin Detemir (Insulin Detemir 100 Units/Ml 10 Ml Vial) 7 unit SUBCUT BEDTIME [facility] Insulin Detemir (Insulin Detemir 100 Units/Ml 10 Ml Vial) 7 unit SUBCUT BEDTIME [facility] Last Admin: 06/15/21 22:01 Dose: Not Given Documented by: Iopamidol (Iopamidol 755 Mg/Ml 500 Ml Multipack Bottle) 100 ml IVPUSH ONETIME STA Stop: 06/15/21 13:49 Last Admin: 06/15/21 13:50 Dose: 100 ml Documented by: Metoprolol Succinate (Metoprolol Succinate 50 Mg Tab.Er) 50 mg PO DAILY [facility] Nitroglycerin (Nitroglycerin 0.4 Mg Tab.Sl) 0.4 mg SL ONETIME ONE Stop: 06/15/21 12:21 Last Admin: 06/15/21 12:28 Dose: 0.4 mg Documented by: Nitroglycerin (Nitroglycerin 0.4 Mg Tab.Sl) Confirm Administered Dose 0.4 mg .ROUTE .STK-MED ONE Stop: 06/15/21 12:20 Last Admin: 06/15/21 12:21 Dose: Not Given Documented by: Nitroglycerin (Nitroglycerin 0.4 Mg Tab.Sl) 0.4 mg SL ONETIME ONE Stop: 06/15/21 12:22 Last Admin: 06/15/21 12:40 Dose: 0.4 mg Documented by: Succinylcholine Chloride (Succinylcholine 200 Mg/10 Ml Mdv) 100 mg IV NOW STA Stop: 06/15/21 12:23 Last Admin: 06/15/21 14:48 Dose: Not Given Documented by: Vancomycin HCl (Pharmacy To Dose - Vancomycin) 1 dose .XX ASDIRECTED [facility] - Exam General: Reports: Alert, Oriented, Cooperative, No Acute Distress HEENT: Reports: Pupils Equal Neck: Reports: Supple, No JVD Lungs: Reports: Decreased Breath Sounds. Denies: Rhonchi, Wheezing Cardiovascular: Reports: Regular Rate, Regular Rhythm GI/Abdominal Exam: Normal Bowel Sounds, Soft, Non-Tender Extremities: Other (Severe lower extremity swelling bilaterally. Tense taut skin. No ulcers or discharge.) Neurological: Reports: No New Focal Deficit
== END 2021-06-16 13:58 | disposition home or self-care (01) | DRG 189 ==
LOC: MW.ED 12:15 → MW.MS 14:47 → MW.ICU 16:06
PROVIDERS: ADMIT Student in an Organized Health Care Education/Training Program; ATTEND Student in an Organized Health Care Education/Training Program
PROC: 5A0935A Assistance with Respiratory Ventilation, Less than 24 Consecutive Hours, High Flow/Velocity Cannula (ICD-10-PCS; principal; 2021-06-15)
DX: J96.01 Acute respiratory failure with hypoxia (principal); C7A.8 Other malignant neuroendocrine tumors; C7B.8 Other secondary neuroendocrine tumors; J96.02 Acute respiratory failure with hypercapnia; E78.00 Pure hypercholesterolemia, unspecified; K21.9 Gastro-esophageal reflux disease without esophagitis; E66.9 Obesity, unspecified; Z20.822 Contact with and (suspected) exposure to COVID-19; E11.9 Type 2 diabetes mellitus without complications; F17.210 Nicotine dependence, cigarettes, uncomplicated; Z79.82 Long term (current) use of aspirin; Z79.4 Long term (current) use of insulin; Z95.5 Presence of coronary angioplasty implant and graft; Z79.899 Other long term (current) drug therapy; Z68.26 Body mass index [BMI] 26.0-26.9, adult
CPT/HCPCS: 36415; 71045; 71045-26; 71275; 71275-26; 80053; 81003; 82947; 83605; 83735; 83880; 84100; 84484; 85025; 85610; 87040; 93005; 94660; 96365; 96375; 99291; A9270-GY; C9113; J0330; J1642; J1644; J1815-GY; J1940; J2543; J3370; J3475; J3490; J7030; J7050; Q9967; U0002

== ENCOUNTER 2021-10-31 21:17 | Emergency (ER) | payer OTHER, MEDICARE ==
[2021-10-31] MEDS ORDERED: Sodium Chloride 0.9% 10 ML Syringe FLUSH PRN (21:57)
[2021-10-31] MEDS ORDERED: Sodium Chloride 0.9% 1,000 ML IV ONE (21:57)
[2021-10-31] MEDS ORDERED: Sodium Chloride 0.9% 2.5 ML Syringe FLUSH PRN (21:57)
[2021-10-31 22:17] LABS: BLOOD UREA NITROGEN,BUN 32 mg/dL (7.0-18.0); CARBON DIOXIDE,CO2 24.8 mmol/L (21.0-32.0); CHLORIDE,CL 94 mmol/L (98-107); GLUCOSE RANDOM 147 mg/dL (74-106); POTASSIUM,K 3.6 mmol/L (3.5-5.1); SODIUM,NA 131 mmol/L (136-148)
--- NOTE | 2021-10-31 22:27 | CR ---
INDICATION: Dizziness TECHNIQUE: Chest radiograph 1 view COMPARISON: 06/15/2021 FINDINGS: The sensitivity and specificity of the exam are moderately limited by the patient`s body habitus. Mediastinum: The mediastinum is normal in appearance. The heart silhouette is normal in size and morphology. Right Port-A-Cath is noted without interval change. Lung: Mild interstitial edema is present bilaterally but significantly decreased compared to prior episode. No sign of pleural effusion seen. No pneumothorax is identified. Bone and Soft tissue: Unremarkable for age. IMPRESSION: 1. Mild interstitial edema is present bilaterally but significantly decreased compared to prior episode. Dictated by Carroll Lopez MD @ 10/31/2021 10:26:39 PM Dictated by: Carroll Lopez MD @ 10/31/2021 22:26:44 (Electronically Signed)
--- NOTE | 2021-10-31 22:35 | CT ---
INDICATION: Dizziness TECHNIQUE: CT Head without i.v. contrast. Coronal and sagittal reformats were obtained. COMPARISON: None FINDINGS: CSF space: Unremarkable for age. Brain: No evidence of mass, acute infarction or hemorrhage is seen. No mass-effect or midline shift is seen. Mild diffuse cortical atrophy is noted. The brain parenchyma is otherwise normal in appearance with preservation of the antunez-white matter junction. Calvarium: The visualized paranasal sinuses are well aerated. The mastoid air cells are clear. The visualized orbits are grossly unremarkable. The calvarium is unremarkable in appearance with no fractures identified. IMPRESSION: 1. No evidence of acute infarction, intracranial hemorrhage, or mass-effect seen. Please note that all CT scans at this facility use dose modulation, iterative reconstruction, and/or weight-based dosing when appropriate to reduce radiation dose to as low as reasonably achievable. Dictated by: Carroll Lopez MD @ 10/31/2021 22:33:47 (Electronically Signed)
--- NOTE | 2021-10-31 23:13 | EDM.PDOC ---
ED HPI GENERAL MEDICAL PROBLEM - General Chief Complaint: General Stated Complaint: EMS ARRIVAL Time Seen by Provider: 10/31/21 21:58 - History of Present Illness INITIAL COMMENTS - FREE TEXT/NARRATIVE: HISTORY AND PHYSICAL: History of present illness: This is a 66-year-old gentleman with a history significant for pancreatic and liver cancer who presents ER today secondary to generalized weakness x1 day. Patient reports that he is currently getting therapy for his cancer and his last dose was approximately 3 weeks ago and he is due for one coming up. Patient reports that yesterday evening while he was going to the bathroom he felt extremely weak, leaned up against a wall and slowly sat himself down to the ground. He reports he was on the ground for approximately 30 to 45 minutes. Patient denies any fall or injury. Patient denies any loss of consciousness. Patient denies any recent fevers, shakes, chills, nausea, vomiting, diarrhea, dysuria, frequency, urgency, chest pain, abdominal pain, shortness of breath. Patient reports that he has had decreased appetite but has been able to force himself to eat and drink which is not unusual for him. Patient denies any melena or bright red blood per rectum. Review of systems: As per history of present illness and below otherwise all systems reviewed and negative. Past medical history: As per history of present illness and as reviewed below otherwise noncon tributory. Surgical history: As per history of present illness and as reviewed below otherwise noncontributory. Social history: No reported history of drug abuse. Family history: As per history of present illness and as reviewed below otherwise noncontributory. Physical exam: This patient was seen and evaluated during the 2019 SARS-CoV-2 novel coronavirus pandemic period. Community viral transmission is ongoing at time of this encounter and the emergency department is operating under pandemic response procedures. Constitutional: Patient is oriented to person, place, and time. Appears well- developed and well-nourished. No distress. HEENT: Moist mucous membranes Head: Normocephalic and atraumatic Eyes: Right eye exhibits no discharge. Left eye exhibits no discharge. No scleral icterus Neck: Normal range of motion. No tracheal deviation present. Cardiovascular: Normal rate and regular rhythm. Pulmonary: Effort normal, no respiratory distress. Abdominal: No distention Musculoskeletal: Normal range of motion Neurologic: Alert and oriented to person, place and time. Skin: [place], warm and dry. Bilateral brawny edema 3+ Psychiatric: Normal mood and affect. Behavior is normal. Judgment and thought content normal. Nursing note and vital signs have been reviewed Diagnostics: [] Therapeutics: [] Assessment and plan: 66-year-old gentleman who presents ER today secondary to generalized weakness and fatigue. Patient reports that he felt dehydrated and upon my evaluation in the ED after he received approximately 300 cc of NSS he reports that he does not really feel better. Patient denies any Covid symptoms at this time. Patient denies any recent fevers, cold, rhinorrhea, abdominal pain. Patient reports his last bowel movement was approxi-1 to 2 days ago. Patient's labs all appear to be at the patient's baseline despite the significant abnormalities in his hemoglobin this appears to be where the patient usually runs. In the ED, we will give the patient a liter of NSS and will reevaluate his symptoms. 12:17 AM: Patient was reevaluated by me multiple times throughout his ER visit. Patient reports that he feels much improved and is requesting to go home. Patient is scheduled for a blood transfusion tomorrow. At this time, patient's physical exam and labs have been unremarkable. Patient be discharged home in stable condition. Reassessment at the time of disposition demonstrates that the patient is in no acute distress. The patient has remained stable throughout the entire ED visit and is without objective evidence for acute process requiring urgent intervention or hospitalization. The patient is stable for discharge, counseling is provided as documented above, discussed symptomatic treatment and specific conditions for return. I have spoken with the patient/caregiver and discussed todays findings, in addition to providing specific details for the plan of care. Questions are answered and there is agreement with the plan. Definitive disposition and diagnosis as appropriate pending reevaluation and review of above. - Related Data Allergies Allergy/AdvReac Type Severity Reaction Status Date / Time No Known Allergies Allergy Verified 10/31/21 21:50 Home Meds: Home Meds Aspirin 325 mg PO DAILY 02/16/21 [History] Furosemide 60 mg PO DAILY 02/16/21 [History] Insulin Degludec [Tresiba] 10 unit SQ BEDTIME 02/16/21 [History] Lansoprazole [Prevacid] 30 mg PO DAILY PRN 02/16/21 [History] Metoprolol Succinate 50 mg PO DAILY 02/16/21 [History] Potassium Chloride 20 meq PO DAILY 02/16/21 [History] atorvaSTATin [Lipitor] 10 mg PO DAILY 02/16/21 [History] Fluticasone Propionate [Flonase Allergy Relief] 1 spray NASBOTH DAILY PRN 03/20/21 [History] Insulin Aspart [NovoLOG] 1 injection SUBCUT ASDIRECTED 03/20/21 [History] Hydrocodone/Acetaminophen [Vicodin Hp 10-300 mg Tablet] 1 each PO Q6H PRN #6 tablet 03/22/21 [Rx] traZODone 100 mg PO BEDTIME 06/15/21 [History] levoFLOXacin [Levaquin] 750 mg PO Q24H 5 Days #5 tablet 06/16/21 [Rx] Spironolactone [Aldactone] 25 mg PO DAILY #30 tab 07/05/21 [Rx] Past Medical History HEENT History: Reports: Other (See Below) Other HEENT History: wears glasses, top and bottom dentures Cardiovascular History: Reports: High Cholesterol, Hypertension, PVD, Stents Respiratory History: Reports: None Other Respiratory History: 45 year smoking hx, presently smokes alittle over 1 PPD Gastrointestinal History: Reports: GERD Genitourinary History: Reports: None Musculoskeletal History: Reports: None Neurological History: Reports: None Psychiatric History: Reports: None Endocrine/Metabolic History: Reports: Diabetes, Type II, Obesity/BMI 30+ Hematologic History: Reports: None Immunologic History: Reports: None Oncologic (Cancer) History: Reports: Liver Dermatologic History: Reports: None - Infectious Disease History Infectious Disease History: Reports: Chicken Pox, Measles, Mumps - Past Surgical History Head Surgeries/Procedures: Reports: None HEENT Surgical History: Reports: None Cardiovascular Surgical History: Reports: Vascular Surgery Other Cardiovascular Surgeries/Procedures: left femerol popiteal bypass, stent placement to right leg Respiratory Surgical History: Reports: None GI Surgical History: Reports: None Male Surgical History: Reports: None Endocrine Surgical History: Reports: None Neurological Surgical History: Reports: None Musculoskeletal Surgical History: Reports: None Oncologic Surgical History: Reports: None Dermatological Surgical History: Reports: None Social & Family History - Family History Family Medical History: No Pertinent Family History - Caffeine Use Caffeine Use: Reports: Coffee, Energy Drinks, Soda Caffeine Use Comment: 3-4 cups of coffee daily - Recreational Drug Use Recreational Drug Use: No ED ROS GENERAL - Review of Systems Review Of Systems: See Below ED EXAM, GENERAL - Physical Exam Exam: See Below #1 Interpretation EKG Date: 10/31/21 Time: 21:25 EKG Interpretation Comments: EKG: As interpreted by ER physician: Dov: Nonspecific ST-T wave abnormalities Normal axis No evidence of ST elevation IN Right bundle branch block Left posterior hemiblock PACs Normal sinus rhythm heart rate of 96 Course - Vital Signs Last Recorded V/S: Last Vital Signs Temp 102.5 F H 10/31/21 21:58 Pulse 98 10/31/21 21:58 Resp 18 10/31/21 21:20 BP 92/42 L 10/31/21 21:58 Pulse Ox 93 L 10/31/21 21:58 - Orders/Labs/Meds Orders: Active Orders 24 hr Category Date Time Status UA W/MICROSCOPIC [URIN] Stat Lab 10/31/21 23:53 Results Sodium Chloride 0.9% [Saline Flush] Med 10/31/21 21:57 Active 10 ml FLUSH ASDIRECTED PRN Sodium Chloride 0.9% [Saline Flush] Med 10/31/21 21:57 Active 2.5 ml FLUSH ASDIRECTED PRN Saline Lock Insert [OM.PC] Stat Oth 10/31/21 21:57 Ordered Medication Orders Sodium Chloride (Sodium Chloride 0.9% 10 Ml Syringe) 10 ml FLUSH ASDIRECTED PRN PRN Reason: Keep Vein Open Sodium Chloride (Sodium Chloride 0.9% 2.5 Ml Syringe) 2.5 ml FLUSH ASDIRECTED PRN PRN Reason: Keep Vein Open Labs: Laboratory Tests 10/31/21 10/31/21 10/31/21 Range/Units 21:25 21:25 23:53 WBC 4.45 (4.0-11.0) K/uL RBC 2.13 L (4.50-5.90) M/uL Hgb 6.9 L (13.0-17.0) g/dL Hct 19.9 L (38.0-50.0) % MCV 93.4 (80.0-98.0) fL MCH 32.4 H (27.0-32.0) pg MCHC 34.7 (31.0-37.0) g/dL RDW Std Deviation 61.8 (28.0-62.0) fl RDW Coeff of Kwadwo 19 H (11.0-15.0) % Plt Count 53 L (150-400) K/uL Neut % (Auto) 76.7 (48.0-80.0) % Lymph % (Auto) 4.0 L (16.0-40.0) % [place] % (Auto) 19.1 H (0.0-15.0) % Eos % (Auto) 0.2 (0.0-7.0) % Baso % (Auto) 0.0 (0.0-1.5) % Neut # (Auto) 3.4 (1.4-5.7) K/uL Lymph # (Auto) 0.2 L (0.6-2.4) K/uL [place] # (Auto) 0.9 H (0.0-0.8) K/uL Eos # (Auto) 0.0 (0.0-0.7) K/uL Baso # (Auto) 0.0 (0.0-0.1) K/uL Nucleated RBC % 0.0 /100WBC Nucleated RBCs # 0 K/uL Sodium 131 L (136-148) mmol/L Potassium 3.6 (3.5-5.1) mmol/L Chloride 94 L (98-107) mmol/L Carbon Dioxide 24.8 (21.0-32.0) mmol/L BUN 32 H (7.0-18.0) mg/dL Creatinine 1.7 H (0.8-1.3) mg/dL Est Cr Clr Drug Dosing 41.35 mL/min Estimated GFR (MDRD) 40.5 ml/min Glucose 147 H (74-106) mg/dL Calcium 8.2 L (8.5-10.1) mg/dL Total Bilirubin 1.2 H (0.2-1.0) mg/dL AST 96 H (15-37) IU/L ALT 44 (14-63) IU/L Alkaline Phosphatase 251 H (46-116) U/L Troponin I < 0.050 (0.000-0.056) ng/mL Total Protein 6.7 (6.4-8.2) g/dL Albumin 2.6 L (3.4-5.0) g/dL Globulin 4.1 H (2.6-4.0) g/dL Albumin/Globulin Ratio 0.6 L (0.9-1.6) Urine Color YELLOW Urine Appearance CLEAR Urine pH 5.5 (5.0-8.0) Ur Specific [place] 1.025 (1.001-1.035) Urine Protein 100 H (NEGATIVE) mg/dL Urine Glucose (UA) NEGATIVE (NEGATIVE) mg/dL Urine Ketones NEGATIVE (NEGATIVE) mg/dL Urine Occult Blood MODERATE H (NEGATIVE) Urine Nitrite NEGATIVE (NEGATIVE) Urine Bilirubin SMALL H (NEGATIVE) Urine Urobilinogen 2.0 H (<2.0) EU/dL Ur Leukocyte Esterase NEGATIVE (NEGATIVE) Meds: Medications Generic Name Dose Route Start Last Admin Trade Name Freq PRN Reason Stop Dose Admin Sodium Chloride 10 ml 10/31/21 21:57 Sodium Chloride 0.9% 10 Ml Syringe FLUSH ASDIRECTED PRN Keep Vein Open Sodium Chloride 2.5 ml 10/31/21 21:57 Sodium Chloride 0.9% 2.5 Ml Syringe FLUSH ASDIRECTED PRN Keep Vein Open Discontinued Medications Generic Name Dose Route Start Last Admin Trade Name Freq PRN Reason Stop Dose Admin Sodium Chloride 1,000 mls @ 999 mls/hr 10/31/21 21:57 10/31/21 22:32 Normal Saline IV 10/31/21 22:57 999 mls/hr .Bolus ONE Administration Departure - Departure Time of Disposition: 00:18 Disposition: Home, Self-Care 01 Condition: Good Clinical Impression: Weakness, Dehydration - Discharge Information Instructions: Dehydration, Adult, [id number], Weakness Forms: ED Department Discharge Additional Instructions: You were seen and evaluated in the ER today secondary to generalized weakness and likely dehydration. In the ER you were given some IV fluids. Your blood tests are all at baseline levels for you. Please keep your appointment tomorrow for blood transfusion. Please return the ER if you develop any new or concerning symptoms. The following information is given to patients seen in the emergency department who are being discharged to home. This information is to outline your options for follow-up care. We provide all patients seen in our emergency department with a follow-up referral. The need for follow-up, as well as the timing and circumstances, are variable depending upon the specifics of your emergency department visit. If you don't have a primary care physician on staff, we will provide you with a referral. We always advise you to contact your personal physician following an emergency department visit to inform them of the circumstance of the visit and for follow-up with them and/or the need for any referrals to a consulting specialist. The emergency department will also refer you to a specialist when appropriate. This referral assures that you have the opportunity for follow-up care with a specialist. All of these measure are taken in an effort to provide you with optimal care, which includes your follow-up. Under all circumstances we always encourage you to contact your private physician who remains a resource for coordinating your care. When calling for follow-up care, please make the office aware that this follow-up is from your recent emergency room visit. If for any reason you are refused follow-up, please contact the [facility] Emergency Department at and asked to speak to the emergency department charge nurse. [facility] [address] [place] [address] [address] Sepsis Event Note (ED) - Focused Exam Vital Signs: Vital Signs Temp Temp Pulse Resp BP Pulse Ox 10/31/21 21:58 102.5 F H 98 92/42 L 93 L 10/31/21 21:20 100.8 F H 95 18 97/44 L 92 L - My Orders Last 24 Hours: My Active Orders 10/31/21 21:57 Sodium Chloride 0.9% [Saline Flush] 10 ml FLUSH ASDIRECTED PRN Sodium Chloride 0.9% [Saline Flush] 2.5 ml FLUSH ASDIRECTED PRN Saline Lock Insert [OM.PC] Stat 10/31/21 23:53 UA W/MICROSCOPIC [URIN] Stat - Assessment/Plan Last 24 Hours: My Active Orders 10/31/21 21:57 Sodium Chloride 0.9% [Saline Flush] 10 ml FLUSH ASDIRECTED PRN Sodium Chloride 0.9% [Saline Flush] 2.5 ml FLUSH ASDIRECTED PRN Saline Lock Insert [OM.PC] Stat 10/31/21 23:53 UA W/MICROSCOPIC [URIN] Stat
[2021-11-01 00:37] VITALS: BP 95/45; PULSE 87
== END 2021-11-01 00:41 | disposition home or self-care (01) ==
LOC: MW.ED 21:17
DX: E86.0 Dehydration (principal); R53.1 Weakness; I45.10 Unspecified right bundle-branch block; E78.00 Pure hypercholesterolemia, unspecified; I10 Essential (primary) hypertension; K21.9 Gastro-esophageal reflux disease without esophagitis; E11.9 Type 2 diabetes mellitus without complications; E66.9 Obesity, unspecified; Z68.25 Body mass index [BMI] 25.0-25.9, adult; Z85.05 Personal history of malignant neoplasm of liver; Z79.82 Long term (current) use of aspirin; Z79.4 Long term (current) use of insulin; Z79.899 Other long term (current) drug therapy
CPT/HCPCS: 70450; 71045; 80053; 81001; 84484; 85025; 93005; 99285; J7030